=== PATIENT | female | born 1970 | race African-American/Black ===

== ENCOUNTER 2017-01-03 11:16 | Emergency (ER) | payer MEDICARE, MEDICAID ==
[~2017-01-03] VITALS: Ht 162.6 cm; Wt 72.6 kg
[~2017-01-03 11:16] MED LIST: ACETAMINOPHEN-1 EAC1 ORAL; ACETAMINOPHEN500 M3 ORAL; ATIVAN2 MG ORAL; CYCLOBENZAPRINE10 MG ORAL; IBUPROFEN600 MG ORAL; KEPPRA500 MG ORAL; MIRTAZAPINE45 MG ORAL; NORCO 5-325 TA1 EACH ORAL; NORCO1 E1 ORAL; ONDANSETRON ODT4 MG ORAL; PROPRANOLOL HCL40 MG ORAL; ROBAXIN-750750 MG PO; TRAMADOL HCL50 MG ORAL; VICODIN1 TA1 ORAL; XANAX2 MG ORAL; [UNRECOGNIZED DRUG - REMARK]
--- NOTE | 2017-01-03 11:26 | Emergency Room Report ---
History of Present Illness General Chief Complaint: Chest Pain Source: Patient, EMS Present Illness HPI R chest pain. On motrin and norco. Pain is sharp, R sided, lateral and radiates up to shoulder, worse with movement. No URI sy. Pain /. CP w/u 3 times to exclude cardiac cause. Post epidural 2 weeks ago. Fevers immediately after which have resolved. Epidurals for chronic back pain. Walks with cane. Also has been seen for neck pain which is also chronic and unchanged today. On macrobid for UTI since Sunday. H/O bipolar disorder. H/O seizures - no recent sz. 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 Reviewed Nursing Documentation: PMH: Agreed, PSxH: Agreed Nursing Documentation-PMH History Of Psychiatric Problem: Yes Hx Seizures: Yes Review of Systems All Other Systems: negative except mentioned in HPI Physical Exam Vital Signs Date Time Temp Pulse Resp B/P Pulse Ox O2 Delivery O2 Flow Rate FiO2 01/03/17 11:13 98.4 98 18 129/86 98 Room Air Sp02 EP Interpretation: reviewed, normal General Appearance: well appearing, no apparent distress, GCS 15 Head: normocephalic, atraumatic Eyes: bilateral eye PERRL, bilateral eye normal inspection ENT: moist mucus membranes Neck: full range of motion, supple Respiratory: lungs clear, normal breath sounds, other - tenderness R lateral chest Cardiovascular #1: regular rate, rhythm Cardiovascular #2: 2+ radial (R) Gastrointestinal: normal inspection, normal bowel sounds, non tender, no mass, non-distended Musculoskeletal: gait/station normal, normal range of motion, other - back with muscle spasm and tenderness, not bony Neurologic: alert, oriented x3, grossly normal Psychiatric: mood/affect normal - frustrated Skin: normal inspection, warm/dry Medical Decision Making Diagnostic Impression: Primary Impression: Chest pain Qualified Codes: R07.89 - Other chest pain Additional Impressions: Partially treated UTI Chronic back pain Qualified Codes: M54.41 - Lumbago with sciatica, right side; G89.29 - Other chronic pain ER Course Patient with R chest pain. Ddx: strain, costochondritis, pneumothorax, PE amongst others. Based on hx and exam, PE less likely. Evaluation with EKG, CXR , labs. Treatment with analgesia. EKG, CXR, labs unremarkable (except opiates). Exam most c/w muscular/chest wall pain. No medical emergency. Patient stable for outpatient observation and treatment. Laboratory Tests Test 01/03/17 11:50 White Blood Count 7.2 K/UL (4.8-10.8) Red Blood Count 3.84 M/UL (4.20-5.40) L Hemoglobin 10.4 G/DL (12.0-16.0) L Hematocrit 33.7 % (37.0-47.0) L Mean Corpuscular Volume 88 FL (80-99) Mean Corpuscular Hemoglobin 27.1 PG (27.0-31.0) Mean Corpuscular Hemoglobin Concent 30.9 G/DL (32.0-36.0) L Red Cell Distribution Width 15.7 % (11.6-14.8) H Platelet Count 244 K/UL (150-450) Mean Platelet Volume 6.8 FL (6.5-10.1) Neutrophils (%) (Auto) 59.8 % (45.0-75.0) Lymphocytes (%) (Auto) 30.2 % (20.0-45.0) Monocytes (%) (Auto) 8.3 % (1.0-10.0) Eosinophils (%) (Auto) 1.0 % (0.0-3.0) Basophils (%) (Auto) 0.6 % (0.0-2.0) Prothrombin Time 10.0 SEC (9.30-11.50) Prothrombin Time INR 1.0 (0.9-1.1) PTT 24 SEC (23-33) Sodium Level 135 mEQ/L (135-145) Potassium Level 3.6 mEQ/L (3.4-4.9) Chloride Level 96 mEQ/L (98-107) L Carbon Dioxide Level 25 mEQ/L (20-30) Anion Gap 14 (5-15) Blood Urea Nitrogen 11 mg/dL (7-23) Creatinine 0.6 mg/dL (0.5-0.9) Estimate Glomerular Filtration Rate > 60 mL/min (>60) Glucose Level 108 mg/dL (74-106) H Calcium Level 8.8 mg/dL (8.6-10.2) Total Bilirubin 0.3 mg/dL (0.0-1.2) Aspartate Amino Transferase (AST) 16 U/L (5-40) Alanine Aminotransferase (ALT) 11 U/L (3-33) Alkaline Phosphatase 45 U/L (35-104) Total Creatine Kinase 51 U/L (26-140) Troponin I < 0.30 ng/mL (<=0.30) Pro-B-Type Natriuretic Peptide 55 pg/mL (0-125) Total Protein 7.0 g/dL (6.6-8.7) Albumin 3.7 g/dL (3.5-5.2) Globulin 3.3 g/dL Albumin/Globulin Ratio 1.1 (1.0-2.7) Urine Opiates Screen Positive (NEGATIVE) H Urine Barbiturates Screen Negative (NEGATIVE) Phencyclidine (PCP) Screen Negative (NEGATIVE) Urine Amphetamines Screen Negative (NEGATIVE) Urine Benzodiazepines Screen Negative (NEGATIVE) Urine Cocaine Screen Negative (NEGATIVE) Urine Marijuana (THC) Screen Negative (NEGATIVE) EKG Diagnostic Results Rate: normal Rhythm: NSR ST Segments: no acute changes Rhythm Strip Diag. Results EP Interpretation: yes Rhythm: NSR, no PVC's, no ectopy Chest X-Ray Diagnostic Results EP Interpretation: Yes Findings: no consolidation, no effusion, no pneumothorax, no acute cardiopulmonary disease Number of Views: 1 Last Vital Signs Date Time Temp Pulse Resp B/P Pulse Ox O2 Delivery O2 Flow Rate FiO2 01/03/17 14:41 98.4 01/03/17 14:30 86 16 111/65 100 Room Air Status: improved Disposition: HOME, SELF-CARE Condition: Improved Scripts Methocarbamol* (ROBAXIN*) 500 Mg Tablet 500 MG PO TID, #10 TAB 0 Refills Prov: Eyal Mckoy M.D. 01/03/17 Eyal Mckoy M.D. January 03, 2017 11:26
[2017-01-03] MEDS ORDERED: Morphine Sulfate 4mg/ml Inj IVP ONE (11:30)
[2017-01-03 11:57] VITALS: BP 129/86
[2017-01-03 12:23] LABS: BASOPHILS % (AUTO) 0.6 % (0.0-2.0); LYMPHOCYTES % (AUTO) 30.2 % (20.0-45.0); MEAN CORPUSCULAR HEMOGLOBIN 27.1 PG (27.0-31.0); MEAN CORPUSCULAR HGB CONC 30.9 G/DL (32.0-36.0); MEAN CORPUSCULAR VOLUME 88 FL (80-99); MEAN PLATELET VOLUME 6.8 FL (6.5-10.1); MONOCYTES % (AUTO) 8.3 % (1.0-10.0); NEUTROPHILS % (AUTO) 59.8 % (45.0-75.0); PLATELET COUNT 244 K/UL (150-450); RED BLOOD COUNT 3.84 M/UL (4.20-5.40); RED CELL DISTRIBUTION WIDTH 15.7 % (11.6-14.8); WHITE BLOOD COUNT 7.2 K/UL (4.8-10.8)
[2017-01-03 12:30] VITALS: BP 132/77
[2017-01-03 12:37] LABS: ALANINE AMINOTRANSFERASE 11 U/L (3-33); ALBUMIN/GLOBULIN RATIO 1.1 (1.0-2.7); ANION GAP 14 (5-15); ASPARTATE AMINO TRANSFERASE 16 U/L (5-40); CALCIUM 8.8 mg/dL (8.6-10.2); CARBON DIOXIDE 25 mEQ/L (20-30); CHLORIDE 96 mEQ/L (98-107); CREATININE 0.6 mg/dL (0.5-0.9); GLOMERULAR FILTRATION RATE > 60 mL/min (>60); HEMOLYSIS 5; POTASSIUM 3.6 mEQ/L (3.4-4.9); SODIUM 135 mEQ/L (135-145); TROPONIN I < 0.30 ng/mL (<=0.30)
--- NOTE | 2017-01-03 12:51 | Diagnostic Imaging Report ---
Indication: Chest Technique: One view of the chest Comparison: 01/10/2015 Findings: Lungs and pleural spaces are clear. Heart size is normal Impression: No acute process
[2017-01-03 13:30] VITALS: BP 111/65
[2017-01-03 14:30] VITALS: BP 111/65
[2017-01-03] MEDS ORDERED: ROBAXIN500 MG PO (14:36)
[2017-01-03] MEDS ORDERED: Oxycodone/Acetaminophen 5-325 ORAL ONE (14:45)
--- NOTE | 2017-01-04 16:02 | Cardiology Report ---
APPROVED REPORT EKG Measurement Heart [id number] Normal sinus rhythm Cannot rule out Anterior infarct, age undetermined Abnormal ECG
== END 2017-01-03 14:42 | disposition home or self-care (01) ==
LOC: EDBD 11:16 → EMR 11:26
DX: R07.89 Other chest pain (principal); N39.0 Urinary tract infection, site not specified; G89.29 Other chronic pain; M54.41 Lumbago with sciatica, right side
CPT/HCPCS: 36415; 71010; 80053; 80300; 82550; 83880; 84484; 85025; 85610; 85730; 93005; 99283; J2270; J2405

== ENCOUNTER 2017-09-30 13:47 | Emergency (ER) | payer MEDICARE, MEDICAID ==
[~2017-09-30] VITALS: Ht 162.6 cm; Wt 81.6 kg
[~2017-09-30 13:47] MED LIST changes: +ROBAXIN500 MG PO
--- NOTE | 2017-09-30 14:43 | Emergency Room Report ---
History of Present Illness General Chief Complaint: Pain Present Illness HPI 47yo f complains of back pain and diffuse right-sided pain for the last 3 days , since falling down She reports it was a mechanical slip and fall She denies loss of consciousness or syncope She denies bleeding anywhere, or neck pain She reports she is able to ambulate and has no other problems, and is not on blood thinners Allergies: Coded Allergies: DIVALPROEX SODIUM (Verified Allergy, Mild, Shortness of Breath, 02/19/13) QUETIAPINE (Verified Allergy, Unknown, 06/13/15) Patient History Past Medical History: see triage record Reviewed Nursing Documentation: PMH: Agreed, PSxH: Agreed Nursing Documentation-PMH History Of Psychiatric Problem: Yes - PTSD Hx Seizures: Yes Review of Systems All Other Systems: negative except mentioned in HPI Physical Exam Vital Signs Date Time Temp Pulse Resp B/P (MAP) Pulse Ox O2 Delivery O2 Flow Rate FiO2 09/30/17 14:21 97.5 90 20 128/91 100 Room Air Sp02 EP Interpretation: reviewed, normal General Appearance: no apparent distress, alert, non-toxic Head: normocephalic Eyes: bilateral eye normal inspection, bilateral eye PERRL, bilateral eye EOMI ENT: normal ENT inspection, hearing grossly normal, normal pharynx, no angioedema, normal voice, moist mucus membranes Neck: normal inspection, full range of motion, supple, supple/symm/no masses Respiratory: chest non-tender, lungs clear, normal breath sounds, chest symmetrical, palpation of chest normal Cardiovascular #1: normal peripheral pulses, regular rate, rhythm Cardiovascular #2: 2+ radial (R), 2+ radial (L) Gastrointestinal: normal inspection, non tender, soft, no mass, no guarding, no rebound Rectal: deferred Genitourinary: normal inspection, no CVA tenderness Musculoskeletal: back normal, gait/station normal, normal range of motion, non- tender - No midline deformities or step-offs and thoracolumbar spine nor sacrum , the patient reports diffuse paraspinous muscle tenderness in lumbar region, no calf tenderness Neurologic: normal inspection, alert, responsive, diamond merchant III-XII nml as tested, motor strength/tone normal, SLR negative - SLR + on R, sensory intact, normal gait, speech normal Psychiatric: judgement/insight normal, memory normal, mood/affect normal, no suicidal/homicidal ideation Skin: normal color, no rash, warm/dry, normal turgor Lymphatic: no adenopathy Medical Decision Making ER Course Patient with musculoskeletal back pain after a fall 3 days ago, Normal neurologic examination No history of IV drug use No history of anticoagulant use Unremarkable exam other than musculoskeletal paraspinous muscle tenderness in the lumbar region As well as positive straight-leg raising test on right side X-ray normal Patient has history of old traumatic injury and herniated disc She has no other right-sided limitations in range of motion or tenderness over bony aspects of the right arm leg or thorax She had no head injury nor any neck pain or tenderness She was given anti-inflammatory, muscle relaxers and valium Other X-Ray Diagnostic Results Other X-Ray Diagnostic Results : X-Ray ordered: L-spine # of Views/Limited Vs Complete: 4 View Indication: Pain PA Xray: Interpretation reviewed Interpretation: no dislocation, no fractures Impression: No acute disease Electronically Signed by: Toy Owen MD Last Vital Signs Date Time Temp Pulse Resp B/P (MAP) Pulse Ox O2 Delivery O2 Flow Rate FiO2 09/30/17 14:21 97.5 90 20 128/91 100 Room Air Condition: Stable Referrals: NON PHYSICIAN (PCP) TOY OWEN M.D Sep 30, 2017 14:43
[2017-09-30] MEDS ORDERED: Cyclobenzaprine 10mg Tab ORAL ONE (14:45)
[2017-09-30] MEDS ORDERED: Ketorolac 60mg Inj IM ONE (14:45)
[2017-09-30] MEDS ORDERED: IBUPROFEN600 MG ORAL (16:21)
[2017-09-30] MEDS ORDERED: CYCLOBENZAPRINE10 MG ORAL (16:21)
--- NOTE | 2017-10-01 12:22 | Diagnostic Imaging Report ---
Indication: Back pain Technique: 3 views of the lumbar spine Comparison: None Findings: Vertebral body heights and disc spaces are preserved. Pedicles are intact. Sacral arches are preserved. Small anterior osteophytes are seen at L4 Included extra spinal soft tissues are unremarkable. Impression: Minimal degenerative changes. No acute bony trauma
[2017-10-18 08:24] VITALS: BP 128/91
[2017-11-20] MEDS ORDERED: ALPRAZOLAM1 MG ORAL (21:52)
[2017-11-20] MEDS ORDERED: MIRTAZAPINE15 MG ORAL (21:52)
[2017-11-21] MEDS ORDERED: NAPROXEN375 M2 ORAL (01:38)
[2017-11-24] MEDS ORDERED: BACLOFEN10 MG ORAL (10:49)
[2017-11-24] MEDS ORDERED: NAPROXEN CR500 MG PO (10:51)
[2017-11-24] MEDS ORDERED: NEURONTIN300 MG ORAL (10:52)
[2017-11-24] MEDS ORDERED: TRAMADOL HCL50 MG ORAL (10:53)
== END 2017-09-30 16:00 | disposition home or self-care (01) ==
LOC: EMR 14:00
DX: M54.5 Low back pain (principal); W01.0XXA Fall on same level from slipping, tripping and stumbling without subsequent striking against object, initial encounter; Y92.9 Unspecified place or not applicable; F43.10 Post-traumatic stress disorder, unspecified; Z86.69 Personal history of other diseases of the nervous system and sense organs; Z88.8 Allergy status to other drugs, medicaments and biological substances
CPT/HCPCS: 72020; 96372; 99284

== ENCOUNTER 2017-10-31 12:31 | Inpatient (IN) | payer MEDICARE, MEDICAID ==
[~2017-10-31] VITALS: Ht 160 cm; Wt 77.1 kg
[2017-10-31 13:44] LABS: APPEARANCE,URINE CLOUDY; BILIRUBIN, URINE NEGATIVE (NEGATIVE); GLUCOSE, URINE (UA) NEGATIVE (NEGATIVE); KETONES,URINE NEGATIVE (NEGATIVE); LEUKOCYTE ESTERASE ,URINE 1+ (NEGATIVE); NITRITE,URINE NEGATIVE (NEGATIVE); PH,URINE 5 (4.5-8.0); PROTEIN,URINE NEGATIVE (NEGATIVE); UROBILINOGEN,URINE NORMAL MG/DL (0.0-1.0)
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
[2017-10-31 13:55] LABS: COLOR,URINE YELLOW
[2017-10-31] MEDS ORDERED: Ketorolac 30mg Inj IV ONE (15:00)
[2017-10-31] MEDS ORDERED: Morphine Sulfate 4mg/ml Inj IVP ONE (15:00)
[2017-10-31 15:21] LABS: BASOPHILS % (AUTO) 0.8 % (0.0-2.0); EOSINOPHILS % (AUTO) 2.2 % (0.0-3.0); HEMATOCRIT 34.1 % (37.0-47.0); HEMOGLOBIN 10.4 G/DL (12.0-16.0); LYMPHOCYTES % (AUTO) 45.7 % (20.0-45.0); MEAN CORPUSCULAR VOLUME 84 FL (80-99); MONOCYTES % (AUTO) 8.2 % (1.0-10.0); PLATELET COUNT 305 K/UL (150-450); RED BLOOD COUNT 4.07 M/UL (4.20-5.40); RED CELL DISTRIBUTION WIDTH 17.5 % (11.6-14.8)
[2017-10-31 15:41] LABS: ANION GAP 8 mmol/L (5-15); BLOOD UREA NITROGEN 9 mg/dL (7-18); CALCIUM 9.4 MG/DL (8.5-10.1); CARBON DIOXIDE 28 MMOL/L (21-32); CHLORIDE 103 MMOL/L (98-107); CREATININE 0.8 MG/DL (0.55-1.30); POTASSIUM 3.8 MMOL/L (3.5-5.1); SODIUM 139 MMOL/L (136-145)
[2017-10-31 15:46] LABS: ALANINE AMINOTRANSFERASE 25 U/L (12-78); ALBUMIN 3.7 G/DL (3.4-5.0); ALBUMIN/GLOBULIN RATIO 0.8 (1.0-2.7); ALKALINE PHOSPHATASE 65 U/L (46-116); ASPARTATE AMINO TRANSFERASE 24 U/L (15-37); BILIRUBIN,TOTAL 0.3 MG/DL (0.2-1.0)
[2017-10-31 16:51] VITALS: BP 147/79
[2017-10-31 18:24] VITALS: BP 153/91
[2017-10-31 19:12] LABS: ANION GAP 8 mmol/L (5-15); BLOOD UREA NITROGEN 10 mg/dL (7-18); CARBON DIOXIDE 28 MMOL/L (21-32); CHLORIDE 104 MMOL/L (98-107); CREATININE 0.7 MG/DL (0.55-1.30); POTASSIUM 3.6 MMOL/L (3.5-5.1); SODIUM 139 MMOL/L (136-145)
[2017-10-31] MEDS: Morphine Sulfate 2mg/ml Inj IVP PRN ×2 (19:27→23:56)
[2017-10-31] MEDS: D5 1/2NS 1,000 ML IV SCH (19:32)
[2017-10-31 20:07] VITALS: BP 150/72
[2017-10-31] MEDS: ALPRAZolam 0.5mg tab ORAL SCH (20:42)
[2017-10-31] MEDS ORDERED: ALPRAZolam 0.25mg tab ORAL SCH (21:00)
[2017-11-01 00:14] VITALS: BP 137/68
[2017-11-01 04:47] VITALS: BP 145/83
[2017-11-01] MEDS: Morphine Sulfate 2mg/ml Inj IVP PRN ×2 (06:05→12:07)
[2017-11-01 07:04] LABS: EOSINOPHILS % (AUTO) 1.9 % (0.0-3.0); HEMATOCRIT 33.8 % (37.0-47.0); HEMOGLOBIN 10.5 G/DL (12.0-16.0); LYMPHOCYTES % (AUTO) 33.4 % (20.0-45.0); MEAN CORPUSCULAR VOLUME 84 FL (80-99); MONOCYTES % (AUTO) 9.2 % (1.0-10.0); NEUTROPHILS % (AUTO) 54.4 % (45.0-75.0); PLATELET COUNT 289 K/UL (150-450); RED BLOOD COUNT 4.01 M/UL (4.20-5.40); RED CELL DISTRIBUTION WIDTH 17.3 % (11.6-14.8); WHITE BLOOD COUNT 6.8 K/UL (4.8-10.8)
[2017-11-01 08:00] VITALS: BP 118/70
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
[2017-11-01] MEDS: Cyclobenzaprine 10mg Tab ORAL SCH ×3 (09:06→18:30)
[2017-11-01] MEDS: Propranolol 40mg tab ORAL SCH ×2 (09:06→18:30)
--- NOTE | 2017-11-01 11:41 | Consultation ---
Consult Note Consult Note ID DIC # [id number] PRADIP BOYLE M.D. Nov 01, 2017 11:41
[2017-11-01 12:00] VITALS: BP 140/76
[2017-11-01] MEDS: Levofloxacin 500mg tab ORAL SCH (15:17)
[2017-11-01] MEDS: D5 1/2NS 1,000 ML IV SCH (15:18)
[2017-11-01 16:00] VITALS: BP 146/87
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
--- NOTE | 2017-11-01 16:25 | Diagnostic Imaging Report ---
Indication: Severe pelvic pain and vaginal bleeding. Negative test Technique: Transabdominal and transvaginal images Comparison: none Findings: Uterus measures 11 cm in length by 6.9 cm AP. The endometrium measures 5 mm thick. The posterior myometrium, there is a 6.3 cm hypoechoic mass which extends to the serosal surface, consistent with a type right. This appears to be centered in the myometrium but does appear to reach the serosal surface. The left ovary measures 2.9 cm in length. The right ovary measures 2.9 cm in length. The ovaries are only visualized on the transabdominal images. No free cul-de-sac fluid. No adnexal mass Impression: Positive for 6.3 cm uterine intramural fibroid. No other significant abnormality demonstrated Handwritten preliminary report previously provided to the emergency room via the PACS
--- NOTE | 2017-11-01 19:30 | Consultation ---
DATE OF CONSULTATION: 11/01/2017 INFECTIOUS DISEASE CONSULTATION CONSULTING PHYSICIAN: Owen Arango M.D. REQUESTING PHYSICIAN: Darrick Mazariegos D.O. REASON FOR CONSULTATION: Evaluation of the patient for urinary tract infection, antibiotic management. HISTORY OF PRESENT ILLNESS: The patient is a 47-year-old female with history of posttraumatic stress disorder who was admitted to this medical center due to right flank, back, and the right groin pain. The patient has been complaining of some dysuria and occasional blood in the urine. Infectious Diseases consultation has been requested for further evaluation of the patient and antibiotic management of possible urinary tract infection. PAST MEDICAL HISTORY: 1. As mentioned above. 2. History of . MEDICATIONS: Currently, off of antibiotics. ALLERGIES: No allergies to antibiotics. FAMILY HISTORY: Not contributing. REVIEW OF SYSTEMS: HEENT: No recent change in vision or hearing. PULMONARY: Occasional cough. CARDIOVASCULAR: No chest pain. GASTROINTESTINAL/ABDOMEN: No diarrhea today. GENITOURINARY: As mentioned above. MUSCULOSKELETAL: As mentioned above. PHYSICAL EXAMINATION: VITAL SIGNS: Temperature 97 degrees, blood pressure 118/70, pulse 86, and respiratory rate 18. HEENT: No pale conjunctiva. No icterus. NECK: No lymphadenopathy. CHEST: Clear. HEART: S1 and S2. ABDOMEN: Soft. Mild right flank tenderness. Right groin and right lower quadrant tenderness mild. LABORATORY AND DIAGNOSTIC DATA: White blood cells 6.8, hemoglobin 10, and platelet 289. UA, 5 to 10 white blood cells, 5 to 10 red blood cells, and 2+ occult blood. BUN 10 and creatinine 0.7. X-ray of lumbar spine back in 09/30/2017 showed minimal DJD changes. PLAN: 1. We will start the patient on Levaquin. 2. Monitor urine culture. 3. Monitor blood culture. 4. CT of abdomen without contrast, rule out renal stone. 5. Monitor CBC. 6. Monitor BMP. 7. Based on the patient's clinical course and laboratories, we will do further recommendations. Thank you, Dr. Mazariegos, for allowing me to participate in the care of this patient. I will follow the patient with you during this hospitalization. Owen Arango M.D. DR: GABO JOB#: [id number] CC:
[2017-11-01 20:00] VITALS: BP 138/60
[2017-11-01] MEDS: ALPRAZolam 0.5mg tab ORAL SCH (21:08)
--- NOTE | 2017-11-01 23:45 | History and Physical Report ---
DATE OF ADMISSION: 10/31/2017 TIME: 2 p.m. CONSULTANTS: 1. Alessia Baldwin M.D. 2. Owen Arango M.D. 3. Dr. Haile. 4. Lucretia Rojas M.D. 5. Marty Chen M.D. 6. Dr. Collins. CHIEF COMPLAINT: Intractable back pain on right, urinary tract infection, fibroid, encephalopathy, PTSD. BRIEF HISTORY: This is a 47-year-old female, who about a week ago started having back pain radiating down to the leg, is getting worse, came to [facility], diagnosed with the above, and urinary tract infection, and history of fibroids admitted to medical floor for further treatment. Currently, calm in bed, pain somewhat subsided. No complaint. REVIEW OF SYSTEMS: No chest pain. No shortness of breath. No nausea, vomiting, or diarrhea. PAST MEDICAL HISTORY: PTSD and fibroid. PAST SURGICAL HISTORY: . MEDICATIONS: Include levofloxacin, Flexeril, Inderal, Keppra, Remeron, Xanax, Zofran, morphine, Tylenol. ALLERGIES: Depakote and quetiapine. SOCIAL HISTORY: No smoking. Occasional alcohol. No intravenous drug abuse. FAMILY HISTORY: Noncontributory. PHYSICAL EXAMINATION: GENERAL: Calm in bed, oriented x3, no acute distress. VITAL SIGNS: Show temperature 97 degrees, pulse 81, respiratory rate 19, blood pressure 140/76. CARDIOVASCULAR: No murmur. LUNGS: Distant and clear. ABDOMEN: Bowel sounds positive. Soft, nontender and nondistended. EXTREMITIES: No cyanosis or edema. NEUROLOGIC: The patient moves all extremities, but slightly weak. LABORATORY AND DIAGNOSTIC DATA: Hemoglobin and hematocrit 10 and 33 otherwise CBC is normal. BMP is normal. Urinalysis 3+ occult blood, 1+ leukocyte esterase. ASSESSMENT: 1. back pain. 2. Urinary tract infection. 3. Fibroid. 4. Seizure. 5. Anemia. 6. Encephalopathy. 7. PTSD. PLAN: 1. OT/PT. 2. Dietary evaluation. 3. Pain control. 4. CBC and BMP in the morning. 5. Antibiotics per Infectious Disease. 6. Resume home medications. 7. Dr. Baldwin, Dr. Arango, Dr. Dr. Crystal Haile Dr. Ganjianpour, Dr. Johnson to consult. Darrick Mazariegos D.O. DR: Bing JOB#: [id number] CC:
[2017-11-02] VITALS: BP 143/67
[2017-11-02 04:41] VITALS: BP 127/73
[2017-11-02] MEDS: D5 1/2NS 1,000 ML IV SCH ×2 (06:43→21:52)
[2017-11-02 06:56] LABS: BASOPHILS % (AUTO) 1.7 % (0.0-2.0); EOSINOPHILS % (AUTO) 3.5 % (0.0-3.0); HEMOGLOBIN 11.3 G/DL (12.0-16.0); LYMPHOCYTES % (AUTO) 39.7 % (20.0-45.0); MEAN CORPUSCULAR VOLUME 84 FL (80-99); MONOCYTES % (AUTO) 10.8 % (1.0-10.0); NEUTROPHILS % (AUTO) 44.4 % (45.0-75.0); PLATELET COUNT 285 K/UL (150-450); RED BLOOD COUNT 4.29 M/UL (4.20-5.40); RED CELL DISTRIBUTION WIDTH 17.8 % (11.6-14.8); WHITE BLOOD COUNT 4.6 K/UL (4.8-10.8)
--- NOTE | 2017-11-02 06:57 | General Progress Note ---
Assessment/Plan Problem List: (1) PTSD (post-traumatic stress disorder) ICD Codes: F43.10 - Post-traumatic stress disorder, unspecified SNOMED: 22545100 (2) Fibroid ICD Codes: D25.9 - Leiomyoma of uterus, unspecified SNOMED: 50824072 (3) Anemia ICD Codes: D64.9 - Anemia, unspecified SNOMED: 208463415 (4) Low back pain ICD Codes: M54.5 - Low back pain SNOMED: 589675749 (5) Chronic back pain ICD Codes: M54.9 - Dorsalgia, unspecified; G89.29 - Other chronic pain SNOMED: 702138757 (6) Acute exacerbation of chronic low back pain ICD Codes: M54.5 - Low back pain; G89.29 - Other chronic pain SNOMED: 337674685 (7) UTI (urinary tract infection) ICD Codes: N39.0 - Urinary tract infection, site not specified SNOMED: 96096058 (8) Seizure disorder Status: unchanged Assessment/Plan otp t diet abx gi f/u cbc bmp am Subjective Constitutional: Reports: weakness Allergies: Coded Allergies: DIVALPROEX SODIUM (Verified Allergy, Mild, Shortness of Breath, 02/19/13) QUETIAPINE (Verified Allergy, Unknown, 06/13/15) All Systems: reviewed and negative except above Subjective calm sleepy Objective Last 24 Hour Vital Signs Date Time Temp Pulse Resp B/P (MAP) Pulse Ox O2 Delivery O2 Flow Rate FiO2 11/02/17 04:41 97.2 69 20 127/73 100 Room Air 97.2 63 11/02/17 00:00 97.9 79 20 143/67 98 97.9 11/01/17 20:00 98.1 78 18 138/60 98 98.1 11/01/17 19:29 97.5 11/01/17 18:30 76 146/87 11/01/17 18:30 97.5 11/01/17 16:00 97.5 76 18 146/87 97 97.5 11/01/17 15:18 97.7 11/01/17 12:37 97.7 11/01/17 12:07 97.7 11/01/17 12:00 97.7 71 19 140/76 98 97.7 3/1/18 09:06 76 118/70 11/01/17 09:06 97.7 11/01/17 08:00 97.7 76 18 118/70 98 97.7 Intake and Output 11/01/17 11/02/17 19:00 07:00 Intake Total 1020 ml 1200 ml Balance 1020 ml 1200 ml Intake Oral 480 ml 480 ml IV Total 540 ml 720 ml # Voids 2 2 Laboratory Tests 11/01/17 19:15: Urine HCG, Qualitative Negative 11/02/17 05:15: White Blood Count [Pending], Red Blood Count [Pending], Hemoglobin [Pending], Hematocrit [Pending], Mean Corpuscular Volume [Pending], Mean Corpuscular Hemoglobin [Pending], Mean Corpuscular Hemoglobin Concent [Pending], Red Cell Distribution Width [Pending], Platelet Count [Pending], Mean Platelet Volume [ Pending], Neutrophils (%) (Auto) [Pending], Lymphocytes (%) (Auto) [Pending], Monocytes (%) (Auto) [Pending], Eosinophils (%) (Auto) [Pending], Basophils (%) (Auto) [Pending], Sodium Level [Pending], Potassium Level [Pending], Chloride Level [Pending], Carbon Dioxide Level [Pending], Blood Urea Nitrogen [Pending], Creatinine [Pending], Estimat Glomerular Filtration Rate [Pending], Glucose Level [Pending], Calcium Level [Pending] Height (Feet): 5 Height (Inches): 3.00 Weight (Pounds): 170 General Appearance: lethargic EENT: normal ENT inspection Neck: normal alignment Cardiovascular: normal peripheral pulses, normal rate, regular rhythm Respiratory/Chest: chest wall non-tender, lungs clear, normal breath sounds Abdomen: normal bowel sounds, non tender, soft Extremities: normal inspection Edema: no edema noted Arm (L), no edema noted Arm (R), no edema noted Leg (L), no edema noted Leg (R), no edema noted Pedal (L), no edema noted Pedal (R), no edema noted Generalized Neurologic: motor weakness Skin: normal pigmentation, warm/dry CHRISTINA HUI Nov 02, 2017 06:57
[2017-11-02 07:35] LABS: ANION GAP 9 mmol/L (5-15); BLOOD UREA NITROGEN 9 mg/dL (7-18); CALCIUM 9.4 MG/DL (8.5-10.1); CARBON DIOXIDE 26 MMOL/L (21-32); CHLORIDE 104 MMOL/L (98-107); CREATININE 0.8 MG/DL (0.55-1.30); POTASSIUM 4.1 MMOL/L (3.5-5.1); SODIUM 139 MMOL/L (136-145)
[2017-11-02 08:00] VITALS: BP 135/75
[2017-11-02] MEDS: Levofloxacin 500mg tab ORAL SCH (09:04)
[2017-11-02] MEDS: Propranolol 40mg tab ORAL SCH ×2 (09:04→18:29)
[2017-11-02] MEDS: Cyclobenzaprine 10mg Tab ORAL SCH ×3 (09:05→18:28)
--- NOTE | 2017-11-02 09:15 | Consultation ---
History of Present Illness General Date patient seen: Nov 02, 2017 Present Illness Allergies: Coded Allergies: DIVALPROEX SODIUM (Verified Allergy, Mild, Shortness of Breath, 02/19/13) QUETIAPINE (Verified Allergy, Unknown, 06/13/15) Medication History Scheduled Alprazolam* (Xanax*), 2 MG ORAL HS, (Reported) Cyclobenzaprine Hcl* (Flexeril*), 10 MG ORAL THREE TIMES A DAY Mirtazapine* (Remeron*), 45 MG ORAL DAILY, (Reported) Scheduled PRN Ibuprofen* (Motrin*), 600 MG ORAL Q6H PRN for For Pain Discontinued Medications Acetaminophen With Codeine (T#3) (Tylenol #3 Tab*), 1 TAB ORAL Q8H PRN for For Pain Discontinued Reason: Pt stopped taking med Levetiracetam (Keppra), 250 MG ORAL EVERY 12 HOURS, (Reported) Discontinued Reason: Pt stopped taking med Methocarbamol* (Robaxin-750*), 750 MG PO TID Discontinued Reason: Pt stopped taking med Methocarbamol* (Robaxin*), 500 MG PO TID Discontinued Reason: Pt stopped taking med Ondansetron Odt* (Zofran Odt*), 4 MG ORAL EVERY 8 HOURS Discontinued Reason: Pt stopped taking med Propranolol Hcl* (Inderal*), 40 MG ORAL BID, (Reported) Discontinued Reason: Pt stopped taking med Tramadol Hcl* (Ultram*), 50 MG ORAL BID PRN for For Pain, (Reported) Discontinued Reason: Pt stopped taking med Patient History Healthcare decision maker self Resuscitation status Full Code Advanced Directive on File No Physical Exam Last 24 Hour Vital Signs Date Time Temp Pulse Resp B/P (MAP) Pulse Ox O2 Delivery O2 Flow Rate FiO2 11/02/17 09:05 98.1 11/02/17 09:04 76 135/75 11/02/17 08:00 98.1 76 21 135/75 95 98.1 11/02/17 04:41 97.2 69 20 127/73 100 Room Air 97.2 63 11/02/17 00:00 97.9 79 20 143/67 98 97.9 11/01/17 20:00 98.1 78 18 138/60 98 98.1 11/01/17 19:29 97.5 11/01/17 18:30 76 146/87 11/01/17 18:30 97.5 11/01/17 16:00 97.5 76 18 146/87 97 97.5 11/01/17 15:18 97.7 11/01/17 12:37 97.7 11/01/17 12:07 97.7 11/01/17 12:00 97.7 71 19 140/76 98 97.7 Intake and Output 11/01/17 11/02/17 19:00 07:00 Intake Total 1020 ml 1200 ml Balance 1020 ml 1200 ml Intake Oral 480 ml 480 ml IV Total 540 ml 720 ml # Voids 2 2 Laboratory Tests Test 11/01/17 19:15 11/02/17 05:15 Urine HCG, Qualitative Negative White Blood Count 4.6 K/UL (4.8-10.8) L Red Blood Count 4.29 M/UL (4.20-5.40) Hemoglobin 11.3 G/DL (12.0-16.0) L Hematocrit 36.0 % (37.0-47.0) L Mean Corpuscular Volume 84 FL (80-99) Mean Corpuscular Hemoglobin 26.3 PG (27.0-31.0) L Mean Corpuscular Hemoglobin Concent 31.3 G/DL (32.0-36.0) L Red Cell Distribution Width 17.8 % (11.6-14.8) H Platelet Count 285 K/UL (150-450) Mean Platelet Volume 7.3 FL (6.5-10.1) Neutrophils (%) (Auto) 44.4 % (45.0-75.0) L Lymphocytes (%) (Auto) 39.7 % (20.0-45.0) Monocytes (%) (Auto) 10.8 % (1.0-10.0) H Eosinophils (%) (Auto) 3.5 % (0.0-3.0) H Basophils (%) (Auto) 1.7 % (0.0-2.0) Sodium Level 139 MMOL/L (136-145) Potassium Level 4.1 MMOL/L (3.5-5.1) Chloride Level 104 MMOL/L (98-107) Carbon Dioxide Level 26 MMOL/L (21-32) Anion Gap 9 mmol/L (5-15) Blood Urea Nitrogen 9 mg/dL (7-18) Creatinine 0.8 MG/DL (0.55-1.30) Estimat Glomerular Filtration Rate > 60 mL/min (>60) Glucose Level 101 MG/DL (74-106) Calcium Level 9.4 MG/DL (8.5-10.1) Height (Feet): 5 Height (Inches): 3.00 Weight (Pounds): 170 Medications Current Medications Medications (Trade) Dose Ordered Sig/Jose Guadalupe Route PRN Reason Start Time Stop Time Status Last Admin Dose Admin Acetaminophen (Tylenol) 650 mg Q4H PRN ORAL Mild Pain/Temp > 100.5 10/31/17 18:15 11/30/17 18:14 Alprazolam (Xanax) 2 mg QHS ORAL 10/31/17 21:00 11/07/17 20:59 11/01/17 21:08 Cyclobenzaprine HCl (Flexeril) 10 mg THREE TIMES A DAY ORAL 11/01/17 09:00 12/01/17 08:59 11/02/17 09:05 Dextrose/Sodium Chloride 1,000 ml @ 60 mls/hr [id number] IV 10/31/17 19:00 11/30/17 18:59 11/02/17 06:43 Levetiracetam (Keppra) 250 mg Q12HR ORAL 10/31/17 21:00 11/30/17 20:59 11/02/17 09:04 Levofloxacin (Levaquin) 500 mg DAILY ORAL 11/01/17 12:30 11/08/17 12:29 11/02/17 09:04 Mirtazapine (Remeron) 45 mg BEDTIME ORAL 10/31/17 21:00 11/30/17 20:59 11/01/17 21:08 Morphine Sulfate (Morphine Sulfate) 2 mg Q4H PRN IVP MOD-SEVERE PAIN 10/31/17 18:15 11/07/17 18:14 11/01/17 12:07 Ondansetron HCl (Zofran) 4 mg Q6H PRN IVP Nausea & Vomiting 10/31/17 18:30 11/30/17 18:29 Propranolol HCl (Inderal) 40 mg BID ORAL 11/01/17 09:00 12/01/17 08:59 11/02/17 09:04 Assessment/Plan Assessment/Plan (1) Lumbar Radiculopathy (2) Lumbago (3) Cervical Radiculopathy (4) Cervicalgia seen dictated BETH SIDHU Nov 02, 2017 09:15
[2017-11-02 12:00] VITALS: BP 143/92
--- NOTE | 2017-11-02 14:07 | Infectious Diseases Prog Note ---
Assessment/Plan Assessment/Plan A: The patient is a 47-year-old female with Porbable UTI UCx: Mixed growth ? contamination Right flank right groin pain / dysuria Hx of occasional blood in the urine. PTSD History of . US : Positive for 6.3 cm uterine intramural fibroid. PLAN: cont patient on Levaquin d # 2 Monitor urine culture Monitor blood culture. CT of abdomen without contrast, rule out renal stone. Monitor CBC. Monitor BMP. Subjective Allergies: Coded Allergies: DIVALPROEX SODIUM (Verified Allergy, Mild, Shortness of Breath, 02/19/13) QUETIAPINE (Verified Allergy, Unknown, 06/13/15) Subjective afebrile Objective Vital Signs Last 24 Hour Vital Signs Date Time Temp Pulse Resp B/P (MAP) Pulse Ox O2 Delivery O2 Flow Rate FiO2 11/02/17 13:34 97.7 11/02/17 12:00 97.7 75 19 143/92 100 97.7 11/02/17 10:04 98.1 11/02/17 09:05 98.1 11/02/17 09:04 76 135/75 11/02/17 08:00 98.1 76 21 135/75 95 98.1 11/02/17 04:41 97.2 69 20 127/73 100 Room Air 97.2 63 11/02/17 00:00 97.9 79 20 143/67 98 97.9 11/01/17 20:00 98.1 78 18 138/60 98 98.1 11/01/17 18:30 76 146/87 11/01/17 18:30 97.5 11/01/17 16:00 97.5 76 18 146/87 97 97.5 11/01/17 15:18 97.7 Height (Feet): 5 Height (Inches): 3.00 Weight (Pounds): 170 HEENT: anicteric Respiratory/Chest: no respiratory distress Cardiovascular: normal rate Abdomen: soft, non tender Microbiology Date/Time Source Procedure Growth Status 11/01/17 05:55 Urine,Clean Catch Urine Culture - Preliminary Mixed Gram Positive Organism Resulted Laboratory Tests Test 11/01/17 19:15 11/02/17 05:15 Urine HCG, Qualitative Negative White Blood Count 4.6 K/UL (4.8-10.8) L Red Blood Count 4.29 M/UL (4.20-5.40) Hemoglobin 11.3 G/DL (12.0-16.0) L Hematocrit 36.0 % (37.0-47.0) L Mean Corpuscular Volume 84 FL (80-99) Mean Corpuscular Hemoglobin 26.3 PG (27.0-31.0) L Mean Corpuscular Hemoglobin Concent 31.3 G/DL (32.0-36.0) L Red Cell Distribution Width 17.8 % (11.6-14.8) H Platelet Count 285 K/UL (150-450) Mean Platelet Volume 7.3 FL (6.5-10.1) Neutrophils (%) (Auto) 44.4 % (45.0-75.0) L Lymphocytes (%) (Auto) 39.7 % (20.0-45.0) Monocytes (%) (Auto) 10.8 % (1.0-10.0) H Eosinophils (%) (Auto) 3.5 % (0.0-3.0) H Basophils (%) (Auto) 1.7 % (0.0-2.0) Sodium Level 139 MMOL/L (136-145) Potassium Level 4.1 MMOL/L (3.5-5.1) Chloride Level 104 MMOL/L (98-107) Carbon Dioxide Level 26 MMOL/L (21-32) Anion Gap 9 mmol/L (5-15) Blood Urea Nitrogen 9 mg/dL (7-18) Creatinine 0.8 MG/DL (0.55-1.30) Estimat Glomerular Filtration Rate > 60 mL/min (>60) Glucose Level 101 MG/DL (74-106) Calcium Level 9.4 MG/DL (8.5-10.1) Current Medications Medications (Trade) Dose Ordered Sig/Jose Guadalupe Route PRN Reason Start Time Stop Time Status Last Admin Dose Admin Acetaminophen (Tylenol) 650 mg Q4H PRN ORAL Mild Pain/Temp > 100.5 10/31/17 18:15 11/30/17 18:14 Alprazolam (Xanax) 2 mg QHS ORAL 10/31/17 21:00 11/07/17 20:59 11/01/17 21:08 Cyclobenzaprine HCl (Flexeril) 10 mg THREE TIMES A DAY ORAL 11/01/17 09:00 12/01/17 08:59 11/02/17 13:34 Dextrose/Sodium Chloride 1,000 ml @ 60 mls/hr [id number] IV 10/31/17 19:00 11/30/17 18:59 11/02/17 06:43 Levetiracetam (Keppra) 250 mg Q12HR ORAL 10/31/17 21:00 11/30/17 20:59 11/02/17 09:04 Levofloxacin (Levaquin) 500 mg DAILY ORAL 11/01/17 12:30 11/08/17 12:29 11/02/17 09:04 Mirtazapine (Remeron) 45 mg BEDTIME ORAL 10/31/17 21:00 11/30/17 20:59 11/01/17 21:08 Morphine Sulfate (Morphine Sulfate) 2 mg Q4H PRN IVP MOD-SEVERE PAIN 10/31/17 18:15 11/07/17 18:14 11/01/17 12:07 Ondansetron HCl (Zofran) 4 mg Q6H PRN IVP Nausea & Vomiting 10/31/17 18:30 11/30/17 18:29 Propranolol HCl (Inderal) 40 mg BID ORAL 11/01/17 09:00 12/01/17 08:59 11/02/17 09:04 PRADIP BOYLE M.D. Nov 02, 2017 14:07
--- NOTE | 2017-11-02 15:13 | Diagnostic Imaging Report ---
Indication: Abdominal pain Technique: Continuous helical transaxial imaging of the abdomen and pelvis was obtained from the lung bases to the pubic symphysis. No intravenous contrast was administered. Coronal 2-D reformats were also obtained. Automatic Exposure Control was utilized. Total Dose length Product (DLP): 815.[address] Dose Index Volume (CTDIvol): 15.47 mGy Comparison: none Findings: The lung bases are clear. There is a hiatal hernia present. Gallbladder is contracted. There is a hypodensity in the upper pole the left kidney probably a cyst measuring about 3.5 cm. There is no biliary ductal dilatation or free fluid. The appendix is normal. No evidence of bowel obstruction. There is a large mass that is in the fundal region of the uterus likely a fibroid having a measurement of about 6 cm. There is suggestion of a 2 cm right ovarian cyst. The urinary bladder is unremarkable. There is no hydronephrosis. IMPRESSION: No acute findings appreciated. Specifically no evidence of nephrolithiasis or hydronephrosis. Normal appendix 6 cm uterine fibroid Suggestion of a right ovarian cyst Suggestion of a left upper lobe renal cyst. Contracted gallbladder. Hiatal hernia The CT scanner at [facility] is accredited by the [employer] and the scans are performed using dose optimization techniques as appropriate to a performed exam including Automatic Exposure control.
[2017-11-02 16:00] VITALS: BP 127/65
--- NOTE | 2017-11-02 16:30 | Consultation ---
DATE OF CONSULTATION: 11/02/2017 PAIN MANAGEMENT CONSULTATION CONSULTING PHYSICIAN: Alessia Baldwin M.D. REFERRING PHYSICIAN: Darrick Mazariegos D.O. PHYSICIAN SLINGER SEQUINS: Juju Watters CHIEF COMPLAINT: Neck and back pain. HISTORY OF PRESENT ILLNESS: This is a 47-year-old female, who is being seen on the Med/Surg floor of [facility] for initial comprehensive pain management consultation. The patient reports that she has been having neck and back pain for the past two years. It is a constant, chronic pain, rating it at 10/10 at its worst. Describing the pain as a sharp, stabbing, shooting, radiating pain to her right upper and lower extremities. Reporting that she had been injured when a 25 boxes fell on her, pushing her into the wall, and hitting the floor and door. Since that time, the patient has been seen by multiple doctors as an outpatient for this issue, getting injections and had acute exacerbation of the pain causing her to come into the hospital. She is on morphine 2 mg IV every four hours as needed for severe pain, controlling the pain well at this time. The patient is comfortable and she has no signs of distress. PAST MEDICAL HISTORY: Posttraumatic stress disorder and fibroids. PAST SURGICAL HISTORY: . ALLERGIES: Depakote and quetiapine. MEDICATIONS: Levofloxacin, Flexeril, Inderal, Keppra, Remeron, Xanax, Zofran, morphine, and Tylenol. SOCIAL HISTORY: Denies smoking tobacco, drinking alcohol, or IV drug abuse. REVIEW OF SYSTEMS: Denies rash, fever, chills, sweating, dizziness, drowsiness, or change in her weight. No shortness of breath, chest pain, palpitations, or cough. No nausea, vomiting, diarrhea, or blood in the stool or urine. No bowel or bladder incontinence. No dysuria. She is complaining of neck and back pain. PHYSICAL EXAMINATION: GENERAL: Alert, awake, and oriented. VITAL SIGNS: Blood pressure 135/75, heart rate is 76, oxygen saturation 98 , respiratory rate is 21, and temperature 98.1 degrees Fahrenheit. HEENT: PERRLA. NECK: Range of motion is decreased due to the patient's clinical condition with tenderness to paracervical muscles. No adenopathy. LUNGS: Clear. HEART: Regular. ABDOMEN: Obese. BACK: Range of motion is decreased in flexion and extension with tenderness to paraspinal muscles. No tenderness to trapezius and rhomboid muscles. EXTREMITIES: Upper extremities, range of motion is full in all directions. No cyanosis. No clubbing. No edema. Sensory is intact. Reflexes are not obtainable. No adenopathy. Lower extremities, range of motion is full in all directions. Motor is intact. No cyanosis. No clubbing. No edema. Sensory is intact. Reflexes are not obtainable. No adenopathy. ASSESSMENT AND PLAN: This is a 47-year-old female with lumbar radiculopathy, lumbago, cervical radiculopathy, cervicalgia. The patient will be continued on the morphine 2 mg IV every four hours as needed for pain. The patient will continue home medications on discharge. No pain medication prescription needed. She was advised to follow up with her primary care physician as an outpatient and pain specialists for continued care. The patient was discussed with Dr. Baldwin and Dr. Baldwin concurred. We will follow the patient. Thank you very much for the courtesy of this consultation. Alessia Baldwin M.D. BEVERLEY Watters DR: CLAY JOB#: [id number] CC: MARYA
[2017-11-02 20:00] VITALS: BP 130/70
[2017-11-02] MEDS: ALPRAZolam 0.5mg tab ORAL SCH (21:52)
--- NOTE | 2017-11-02 23:00 | Consultation ---
DATE OF CONSULTATION: 11/01/2017 PSYCHOTHERAPY CONSULTATION PROGRESS NOTE TREATING ATTENDING PHYSICIAN: Darrick Mazariegos D.O. HISTORY OF PRESENT ILLNESS: This a 47-year-old female patient. The patient lives in [place]. The patient was brought into the hospital for intractable back pain. The patient had been experiencing anxiety and irritability and for these reasons she was referred for psychotherapeutic services. This clinician assessed this patient. The patient states that she has a long history of anxiety. The patient states that her anxiety exacerbated when her medical condition becomes worsen and when she is the pain and that is what she is experiencing at this time. The patient denies suicidal or homicidal thoughts of ideation. Denies any auditory or visual hallucinations. States her anxiety levels are high when she is in pain. Denies any panic attacks at this time. The patient is cooperative and able to participate in psychotherapy. PAST MEDICAL HISTORY: Includes a history of PTSD and bipolar type. ALLERGIES: The patient has allergies to quetiapine and Depakote. SUBSTANCE ABUSE HISTORY: The patient denies history of illicit substance use. The patient states that she drinks alcohol socially and denies history of smoking cigarettes. PSYCHIATRIC HISTORY: The patient states she has a history of anxiety and PTSD from past trauma. she has been suffering from anxiety. SOCIAL HISTORY: The patient is a 47-year-old female patient lives in [place], financially sustained through [employer]. She is a single female patient. MENTAL STATUS EXAMINATION: The patient is alert and oriented to person, place, and time. Her mood is anxious. Affect is congruent. Thought process, disorganized. Thought content, linear. The patient has fair attention and concentration. DIAGNOSIS: Generalized anxiety disorder. PLAN: This clinician assessed this patient, assessed the patient's mental status. Provided the patient with reality orientation. Provide the patient with supportive psychotherapy. Encouraging the patient to participate in treatment milieu, working on increasing compliance towards the coping skills. Continue with behavioral management. This clinician has reviewed the patient's chart. Discussed the treatment with treatment staff. Maldonado Bains PsyD. DR: Williams JOB#: [id number] CC:
[2017-11-03] VITALS (7 sets, daily range): BP systolic 122–133; BP diastolic 65–77
[2017-11-03 07:30] LABS: BASOPHILS % (AUTO) 0.7 % (0.0-2.0); EOSINOPHILS % (AUTO) 2.7 % (0.0-3.0); HEMATOCRIT 34.7 % (37.0-47.0); HEMOGLOBIN 11.1 G/DL (12.0-16.0); LYMPHOCYTES % (AUTO) 44.1 % (20.0-45.0); MEAN CORPUSCULAR VOLUME 84 FL (80-99); MONOCYTES % (AUTO) 11.8 % (1.0-10.0); NEUTROPHILS % (AUTO) 40.7 % (45.0-75.0); PLATELET COUNT 286 K/UL (150-450); RED BLOOD COUNT 4.15 M/UL (4.20-5.40); RED CELL DISTRIBUTION WIDTH 17.8 % (11.6-14.8); WHITE BLOOD COUNT 4.9 K/UL (4.8-10.8)
[2017-11-03 07:39] LABS: ANION GAP 8 mmol/L (5-15); BLOOD UREA NITROGEN 12 mg/dL (7-18); CALCIUM 9.2 MG/DL (8.5-10.1); CARBON DIOXIDE 26 MMOL/L (21-32); CHLORIDE 103 MMOL/L (98-107); CREATININE 0.7 MG/DL (0.55-1.30); POTASSIUM 4.1 MMOL/L (3.5-5.1); SODIUM 137 MMOL/L (136-145)
--- NOTE | 2017-11-03 09:33 | General Progress Note ---
Assessment/Plan Problem List: (1) PTSD (post-traumatic stress disorder) ICD Codes: F43.10 - Post-traumatic stress disorder, unspecified SNOMED: 45581785 (2) Fibroid ICD Codes: D25.9 - Leiomyoma of uterus, unspecified SNOMED: 78155185 (3) Anemia ICD Codes: D64.9 - Anemia, unspecified SNOMED: 172077468 (4) Low back pain ICD Codes: M54.5 - Low back pain SNOMED: 450217190 (5) Chronic back pain ICD Codes: M54.9 - Dorsalgia, unspecified; G89.29 - Other chronic pain SNOMED: 038189617 (6) Acute exacerbation of chronic low back pain ICD Codes: M54.5 - Low back pain; G89.29 - Other chronic pain SNOMED: 799744963 (7) UTI (urinary tract infection) ICD Codes: N39.0 - Urinary tract infection, site not specified SNOMED: 44462051 (8) Seizure disorder Status: stable, progressing, tolerating diet Assessment/Plan otp t diet abx gi f/u cbc bmp am dc plan Subjective Constitutional: Reports: weakness Allergies: Coded Allergies: DIVALPROEX SODIUM (Verified Allergy, Mild, Shortness of Breath, 02/19/13) QUETIAPINE (Verified Allergy, Unknown, 06/13/15) All Systems: reviewed and negative except above Subjective calm sleepy Objective Last 24 Hour Vital Signs Date Time Temp Pulse Resp B/P (MAP) Pulse Ox O2 Delivery O2 Flow Rate FiO2 11/03/17 08:00 97.5 76 18 133/66 100 97.5 11/03/17 04:00 97.9 85 17 122/65 96 97.9 11/03/17 00:31 98.1 65 19 130/70 96 98.1 11/02/17 20:00 97.5 77 18 130/70 99 97.5 11/02/17 19:27 98.7 11/02/17 18:29 71 127/65 11/02/17 18:28 98.7 11/02/17 16:00 98.7 71 19 127/65 97 98.7 11/02/17 13:34 97.7 11/02/17 12:00 97.7 75 19 143/92 100 97.7 Intake and Output 11/02/17 11/03/17 19:00 07:00 Intake Total 1400 ml 1080 ml Balance 1400 ml 1080 ml Intake Oral 860 ml 480 ml IV Total 540 ml 600 ml # Voids 5 3 Laboratory Tests 11/03/17 05:15: White Blood Count 4.9, Red Blood Count 4.15L, Hemoglobin 11.1L, Hematocrit 34.7L , Mean Corpuscular Volume 84, Mean Corpuscular Hemoglobin 26.8L, Mean Corpuscular Hemoglobin Concent 32.1, Red Cell Distribution Width 17.8H, Platelet Count 286, Mean Platelet Volume 7.6, Neutrophils (%) (Auto) 40.7L, Lymphocytes (%) (Auto) 44.1, Monocytes (%) (Auto) 11.8H, Eosinophils (%) (Auto) 2.7, Basophils (%) (Auto) 0.7, Sodium Level 137, Potassium Level 4.1, Chloride Level 103, Carbon Dioxide Level 26, Anion Gap 8, Blood Urea Nitrogen 12, Creatinine 0.7, Estimat Glomerular Filtration Rate > 60, Glucose Level 100, Calcium Level 9.2 Height (Feet): 5 Height (Inches): 3.00 Weight (Pounds): 170 General Appearance: alert EENT: normal ENT inspection Neck: normal alignment Cardiovascular: normal peripheral pulses, normal rate, regular rhythm Respiratory/Chest: chest wall non-tender, lungs clear, normal breath sounds Abdomen: normal bowel sounds, non tender, soft Extremities: normal inspection Edema: no edema noted Arm (L), no edema noted Arm (R), no edema noted Leg (L), no edema noted Leg (R), no edema noted Pedal (L), no edema noted Pedal (R), no edema noted Generalized Neurologic: responsive, motor weakness Skin: normal pigmentation, warm/dry CHRISTINA HUI Nov 03, 2017 09:32
[2017-11-03] MEDS: Propranolol 40mg tab ORAL SCH ×2 (09:36→18:04)
[2017-11-03] MEDS: Levofloxacin 500mg tab ORAL SCH (09:36)
[2017-11-03] MEDS: Cyclobenzaprine 10mg Tab ORAL SCH ×3 (09:37→18:05)
[2017-11-03] MEDS: D5 1/2NS 1,000 ML IV SCH ×2 (11:49→14:31)
[2017-11-03] MEDS: ALPRAZolam 0.5mg tab ORAL SCH (22:16)
[2017-11-04 00:36] VITALS: BP 129/77
[2017-11-04 08:00] VITALS: BP 121/80
[2017-11-04 08:41] LABS: BASOPHILS % (AUTO) 0.6 % (0.0-2.0); EOSINOPHILS % (AUTO) 2.5 % (0.0-3.0); HEMATOCRIT 36.1 % (37.0-47.0); HEMOGLOBIN 11.5 G/DL (12.0-16.0); LYMPHOCYTES % (AUTO) 44.7 % (20.0-45.0); MEAN CORPUSCULAR VOLUME 84 FL (80-99); MONOCYTES % (AUTO) 11.5 % (1.0-10.0); NEUTROPHILS % (AUTO) 40.7 % (45.0-75.0); PLATELET COUNT 281 K/UL (150-450); RED BLOOD COUNT 4.32 M/UL (4.20-5.40); RED CELL DISTRIBUTION WIDTH 17.6 % (11.6-14.8); WHITE BLOOD COUNT 4.7 K/UL (4.8-10.8)
--- NOTE | 2017-11-04 09:05 | General Progress Note ---
Assessment/Plan Problem List: (1) PTSD (post-traumatic stress disorder) ICD Codes: F43.10 - Post-traumatic stress disorder, unspecified SNOMED: 97079164 (2) Fibroid ICD Codes: D25.9 - Leiomyoma of uterus, unspecified SNOMED: 18729770 (3) Anemia ICD Codes: D64.9 - Anemia, unspecified SNOMED: 874736359 (4) Low back pain ICD Codes: M54.5 - Low back pain SNOMED: 002083299 (5) Chronic back pain ICD Codes: M54.9 - Dorsalgia, unspecified; G89.29 - Other chronic pain SNOMED: 339083797 (6) Acute exacerbation of chronic low back pain ICD Codes: M54.5 - Low back pain; G89.29 - Other chronic pain SNOMED: 036381988 (7) UTI (urinary tract infection) ICD Codes: N39.0 - Urinary tract infection, site not specified SNOMED: 85264207 Qualifiers: Qualified Codes: N30.01 - Acute cystitis with hematuria (8) Seizure disorder Status: stable, progressing, tolerating diet Assessment/Plan otp t diet abx gi f/u cbc bmp am dc plan Subjective Constitutional: Reports: weakness Allergies: Coded Allergies: DIVALPROEX SODIUM (Verified Allergy, Mild, Shortness of Breath, 02/19/13) QUETIAPINE (Verified Allergy, Unknown, 06/13/15) All Systems: reviewed and negative except above Subjective calm sleepy ate ok Objective Last 24 Hour Vital Signs Date Time Temp Pulse Resp B/P (MAP) Pulse Ox O2 Delivery O2 Flow Rate FiO2 11/04/17 00:36 97.5 72 18 129/77 100 Room Air 97.5 11/03/17 20:58 98.0 73 18 131/68 100 Room Air 98.0 11/03/17 18:04 75 132/73 11/03/17 16:00 97.6 77 18 132/73 98 Room Air 97.6 75 11/03/17 12:50 98.6 77 18 133/75 99 Room Air 98.6 11/03/17 12:48 98.6 11/03/17 11:51 98.6 75 18 132/77 99 98.6 11/03/17 11:49 97.5 11/03/17 09:37 97.5 11/03/17 09:36 76 133/66 Intake and Output 11/03/17 11/04/17 19:00 07:00 Intake Total 700 ml 960 ml Balance 700 ml 960 ml Intake Oral 400 ml 360 ml IV Total 300 ml 600 ml # Voids 2 1 Laboratory Tests 11/04/17 07:00: White Blood Count 4.7L, Red Blood Count 4.32, Hemoglobin 11.5L, Hematocrit 36.1L , Mean Corpuscular Volume 84, Mean Corpuscular Hemoglobin 26.6L, Mean Corpuscular Hemoglobin Concent 31.8L, Red Cell Distribution Width 17.6H, Platelet Count 281, Mean Platelet Volume 7.3, Neutrophils (%) (Auto) 40.7L, Lymphocytes (%) (Auto) 44.7, Monocytes (%) (Auto) 11.5H, Eosinophils (%) (Auto) 2.5, Basophils (%) (Auto) 0.6, Sodium Level [Pending], Potassium Level [Pending] , Chloride Level [Pending], Carbon Dioxide Level [Pending], Blood Urea Nitrogen [Pending], Creatinine [Pending], Estimat Glomerular Filtration Rate [Pending], Glucose Level [Pending], Calcium Level [Pending] Height (Feet): 5 Height (Inches): 3.00 Weight (Pounds): 170 General Appearance: lethargic EENT: normal ENT inspection Neck: normal alignment Cardiovascular: normal peripheral pulses, normal rate, regular rhythm Respiratory/Chest: chest wall non-tender, lungs clear, normal breath sounds Abdomen: normal bowel sounds, non tender, soft Extremities: normal inspection Edema: no edema noted Arm (L), no edema noted Arm (R), no edema noted Leg (L), no edema noted Leg (R), no edema noted Pedal (L), no edema noted Pedal (R), no edema noted Generalized Neurologic: responsive, motor weakness Skin: normal pigmentation, warm/dry CHRISTINA HUI Nov 04, 2017 09:04
[2017-11-04 09:18] LABS: ANION GAP 7 mmol/L (5-15); BLOOD UREA NITROGEN 11 mg/dL (7-18); CALCIUM 9.1 MG/DL (8.5-10.1); CARBON DIOXIDE 28 MMOL/L (21-32); CHLORIDE 103 MMOL/L (98-107); CREATININE 0.8 MG/DL (0.55-1.30); POTASSIUM 3.9 MMOL/L (3.5-5.1); SODIUM 138 MMOL/L (136-145)
[2017-11-04] MEDS: Levofloxacin 500mg tab ORAL SCH (09:40)
[2017-11-04] MEDS: Propranolol 40mg tab ORAL SCH ×2 (09:40→18:00)
[2017-11-04] MEDS: Cyclobenzaprine 10mg Tab ORAL SCH ×3 (09:41→18:00)
[2017-11-04 12:00] VITALS: BP 126/82
--- NOTE | 2017-11-04 13:44 | Infectious Diseases Prog Note ---
Assessment/Plan Assessment/Plan A: The patient is a 47-year-old female with Portable UTI UCx: Mixed growth ? contamination Right flank right groin pain / dysuria improved CT of abdomen: no acute findings or renal stone. Hx of occasional blood in the urine. PTSD History of . US : Positive for 6.3 cm uterine intramural fibroid. PLAN: cont patient on Levaquin d # 4/ 5 Monitor urine culture Monitor blood culture. Monitor CBC. Monitor BMP. Subjective Allergies: Coded Allergies: DIVALPROEX SODIUM (Verified Allergy, Mild, Shortness of Breath, 02/19/13) QUETIAPINE (Verified Allergy, Unknown, 06/13/15) Subjective afebrile Objective Vital Signs Last 24 Hour Vital Signs Date Time Temp Pulse Resp B/P (MAP) Pulse Ox O2 Delivery O2 Flow Rate FiO2 11/04/17 12:00 97.5 74 17 126/82 99 Room Air 97.5 11/04/17 10:40 97.7 11/04/17 09:40 90 121/80 11/04/17 08:00 97.7 90 17 121/80 98 Room Air 97.7 11/04/17 00:36 97.5 72 18 129/77 100 Room Air 97.5 11/03/17 20:58 98.0 73 18 131/68 100 Room Air 98.0 11/03/17 18:04 75 132/73 11/03/17 16:00 97.6 77 18 132/73 98 Room Air 97.6 75 Height (Feet): 5 Height (Inches): 3.00 Weight (Pounds): 170 HEENT: anicteric Respiratory/Chest: no respiratory distress Cardiovascular: regularly irregular Abdomen: no organomegaly Laboratory Tests Test 11/04/17 07:00 White Blood Count 4.7 K/UL (4.8-10.8) L Red Blood Count 4.32 M/UL (4.20-5.40) Hemoglobin 11.5 G/DL (12.0-16.0) L Hematocrit 36.1 % (37.0-47.0) L Mean Corpuscular Volume 84 FL (80-99) Mean Corpuscular Hemoglobin 26.6 PG (27.0-31.0) L Mean Corpuscular Hemoglobin Concent 31.8 G/DL (32.0-36.0) L Red Cell Distribution Width 17.6 % (11.6-14.8) H Platelet Count 281 K/UL (150-450) Mean Platelet Volume 7.3 FL (6.5-10.1) Neutrophils (%) (Auto) 40.7 % (45.0-75.0) L Lymphocytes (%) (Auto) 44.7 % (20.0-45.0) Monocytes (%) (Auto) 11.5 % (1.0-10.0) H Eosinophils (%) (Auto) 2.5 % (0.0-3.0) Basophils (%) (Auto) 0.6 % (0.0-2.0) Sodium Level 138 MMOL/L (136-145) Potassium Level 3.9 MMOL/L (3.5-5.1) Chloride Level 103 MMOL/L (98-107) Carbon Dioxide Level 28 MMOL/L (21-32) Anion Gap 7 mmol/L (5-15) Blood Urea Nitrogen 11 mg/dL (7-18) Creatinine 0.8 MG/DL (0.55-1.30) Estimat Glomerular Filtration Rate > 60 mL/min (>60) Glucose Level 93 MG/DL (74-106) Calcium Level 9.1 MG/DL (8.5-10.1) Current Medications Medications (Trade) Dose Ordered Sig/Jose Guadalupe Route PRN Reason Start Time Stop Time Status Last Admin Dose Admin Acetaminophen (Tylenol) 650 mg Q4H PRN ORAL Mild Pain/Temp > 100.5 10/31/17 18:15 11/30/17 18:14 Alprazolam (Xanax) 2 mg QHS ORAL 10/31/17 21:00 11/07/17 20:59 11/03/17 22:16 Cyclobenzaprine HCl (Flexeril) 10 mg THREE TIMES A DAY ORAL 11/01/17 09:00 12/01/17 08:59 11/04/17 12:31 Dextrose/Sodium Chloride 1,000 ml @ 60 mls/hr [id number] IV 10/31/17 19:00 11/30/17 18:59 11/03/17 14:31 Levetiracetam (Keppra) 250 mg Q12HR ORAL 10/31/17 21:00 11/30/17 20:59 11/04/17 09:40 Levofloxacin (Levaquin) 500 mg DAILY ORAL 11/01/17 12:30 11/08/17 12:29 11/04/17 09:40 Mirtazapine (Remeron) 45 mg BEDTIME ORAL 10/31/17 21:00 11/30/17 20:59 11/03/17 22:16 Morphine Sulfate (Morphine Sulfate) 2 mg Q4H PRN IVP MOD-SEVERE PAIN 10/31/17 18:15 11/07/17 18:14 11/01/17 12:07 Ondansetron HCl (Zofran) 4 mg Q6H PRN IVP Nausea & Vomiting 10/31/17 18:30 11/30/17 18:29 Propranolol HCl (Inderal) 40 mg BID ORAL 11/01/17 09:00 12/01/17 08:59 11/04/17 09:40 PRADIP BOYLE M.D. Nov 04, 2017 13:44
[2017-11-04 16:14] VITALS: BP 128/76
--- NOTE | 2017-11-04 17:10 | General Progress Note ---
Assessment/Plan Assessment/Plan (1) Lumbar Radiculopathy (2) Lumbago (3) Cervical Radiculopathy (4) Cervicalgia Pt to be continued on Morphine as needed D/w Dr. Baldwin and he concurred. Subjective Date patient seen: Nov 04, 2017 Time patient seen: 04:45 - pm Allergies: Coded Allergies: DIVALPROEX SODIUM (Verified Allergy, Mild, Shortness of Breath, 02/19/13) QUETIAPINE (Verified Allergy, Unknown, 06/13/15) Subjective REVIEW OF SYSTEMS: Denies rash, fever, chills, sweating, dizziness, drowsiness, or change in her weight. No shortness of breath, chest pain, palpitations, or cough. No nausea, vomiting, diarrhea, or blood in the stool or urine. No bowel or bladder incontinence. No dysuria. She is complaining of neck and back pain. SUBJECTIVE: Patient is in bed and says she is feeling better. No signs of pain or distress at this time. Objective Last 24 Hour Vital Signs Date Time Temp Pulse Resp B/P (MAP) Pulse Ox O2 Delivery O2 Flow Rate FiO2 11/04/17 16:14 98.0 78 20 128/76 97 Room Air 98.0 11/04/17 12:00 97.5 74 17 126/82 99 Room Air 97.5 11/04/17 10:40 97.7 11/04/17 09:40 90 121/80 11/04/17 08:00 97.7 90 17 121/80 98 Room Air 97.7 11/04/17 00:36 97.5 72 18 129/77 100 Room Air 97.5 11/03/17 20:58 98.0 73 18 131/68 100 Room Air 98.0 11/03/17 18:04 75 132/73 Intake and Output 11/03/17 11/04/17 19:00 07:00 Intake Total 700 ml 960 ml Balance 700 ml 960 ml Intake Oral 400 ml 360 ml IV Total 300 ml 600 ml # Voids 2 1 Laboratory Tests 11/04/17 07:00: White Blood Count 4.7L, Red Blood Count 4.32, Hemoglobin 11.5L, Hematocrit 36.1L , Mean Corpuscular Volume 84, Mean Corpuscular Hemoglobin 26.6L, Mean Corpuscular Hemoglobin Concent 31.8L, Red Cell Distribution Width 17.6H, Platelet Count 281, Mean Platelet Volume 7.3, Neutrophils (%) (Auto) 40.7L, Lymphocytes (%) (Auto) 44.7, Monocytes (%) (Auto) 11.5H, Eosinophils (%) (Auto) 2.5, Basophils (%) (Auto) 0.6, Sodium Level 138, Potassium Level 3.9, Chloride Level 103, Carbon Dioxide Level 28, Anion Gap 7, Blood Urea Nitrogen 11, Creatinine 0.8, Estimat Glomerular Filtration Rate > 60, Glucose Level 93, Calcium Level 9.1 Height (Feet): 5 Height (Inches): 3.00 Weight (Pounds): 170 Objective GENERAL: Alert, awake, and oriented. HEENT: PERRLA. NECK: tenderness to paracervical muscles. LUNGS: Clear. HEART: Regular. ABDOMEN: Obese. EXTREMITIES: No cyanosis. No clubbing. No edema. NEURO: No changes. BETH SIDHU Nov 04, 2017 17:10
[2017-11-04] MEDS ORDERED: D5 1/2NS 1000ml IV ONE (17:29)
[2017-11-04 20:00] VITALS: BP 131/78
[2017-11-04] MEDS: ALPRAZolam 0.5mg tab ORAL SCH (20:40)
[2017-11-04] MEDS: Morphine Sulfate 2mg/ml Inj IVP PRN (21:45)
[2017-11-04] MEDS: D5 1/2NS 1,000 ML IV SCH ×2 (22:30→23:00)
[2017-11-05 04:00] VITALS: BP 114/72
[2017-11-05 08:00] VITALS: BP 133/84
--- NOTE | 2017-11-05 08:44 | General Progress Note ---
Assessment/Plan Assessment/Plan (1) Lumbar Radiculopathy (2) Lumbago (3) Cervical Radiculopathy (4) Cervicalgia Pt to be continued on Morphine as needed D/w Dr. Baldwin and he concurred. Subjective Date patient seen: Nov 05, 2017 Time patient seen: 07:00 - am Allergies: Coded Allergies: DIVALPROEX SODIUM (Verified Allergy, Mild, Shortness of Breath, 02/19/13) QUETIAPINE (Verified Allergy, Unknown, 06/13/15) Subjective REVIEW OF SYSTEMS: Denies rash, fever, chills, sweating, dizziness, drowsiness, or change in her weight. No shortness of breath, chest pain, palpitations, or cough. No nausea, vomiting, diarrhea, or blood in the stool or urine. No bowel or bladder incontinence. No dysuria. She is complaining of neck and back pain. SUBJECTIVE: Patient reports that her pain has been well tolerated and is stable on the Morphine. She has no new complaints. Pt is looking forward to being discharged home as per wet roller and will continue the home medications no Rx needed. Objective Last 24 Hour Vital Signs Date Time Temp Pulse Resp B/P (MAP) Pulse Ox O2 Delivery O2 Flow Rate FiO2 11/05/17 04:00 97.5 81 18 114/72 99 Room Air 97.5 11/04/17 21:45 98.0 11/04/17 20:00 97.9 82 20 131/78 98 Room Air 97.9 11/04/17 18:59 98.0 11/04/17 18:00 78 128/76 11/04/17 16:14 98.0 78 20 128/76 97 Room Air 98.0 11/04/17 12:00 97.5 74 17 126/82 99 Room Air 97.5 11/04/17 09:40 90 121/80 Intake and Output 11/04/17 11/05/17 19:00 07:00 Intake Total 240 ml 1020 ml Balance 240 ml 1020 ml Intake Oral 240 ml 480 ml IV Total 540 ml # Voids 1 1 Height (Feet): 5 Height (Inches): 3.00 Weight (Pounds): 170 Objective GENERAL: Alert, awake, and oriented. HEENT: PERRLA. NECK: tenderness to paracervical muscles. LUNGS: Clear. HEART: Regular. ABDOMEN: Obese. EXTREMITIES: No cyanosis. No clubbing. No edema. NEURO: No changes. BETH SIDHU Nov 05, 2017 08:44
[2017-11-05] MEDS: Propranolol 40mg tab ORAL SCH (10:03)
[2017-11-05] MEDS: Levofloxacin 500mg tab ORAL SCH (10:03)
[2017-11-05] MEDS: Cyclobenzaprine 10mg Tab ORAL SCH (10:04)
[2017-11-05 10:24] LABS: BASOPHILS % (AUTO) 1.4 % (0.0-2.0); EOSINOPHILS % (AUTO) 2.4 % (0.0-3.0); HEMATOCRIT 34.3 % (37.0-47.0); HEMOGLOBIN 10.9 G/DL (12.0-16.0); LYMPHOCYTES % (AUTO) 48.5 % (20.0-45.0); MEAN CORPUSCULAR VOLUME 84 FL (80-99); MONOCYTES % (AUTO) 11.3 % (1.0-10.0); NEUTROPHILS % (AUTO) 36.4 % (45.0-75.0); PLATELET COUNT 271 K/UL (150-450); RED CELL DISTRIBUTION WIDTH 17.4 % (11.6-14.8); WHITE BLOOD COUNT 5.3 K/UL (4.8-10.8)
[2017-11-05 10:46] LABS: ANION GAP 9 mmol/L (5-15); BLOOD UREA NITROGEN 10 mg/dL (7-18); CARBON DIOXIDE 26 MMOL/L (21-32); CHLORIDE 106 MMOL/L (98-107); CREATININE 0.8 MG/DL (0.55-1.30); POTASSIUM 3.8 MMOL/L (3.5-5.1); SODIUM 141 MMOL/L (136-145)
[2017-11-05 12:10] VITALS: BP 127/78
--- NOTE | 2017-11-05 14:01 | General Progress Note ---
Assessment/Plan Problem List: (1) PTSD (post-traumatic stress disorder) ICD Codes: F43.10 - Post-traumatic stress disorder, unspecified SNOMED: 47664921 (2) Fibroid ICD Codes: D25.9 - Leiomyoma of uterus, unspecified SNOMED: 74236124 (3) Anemia ICD Codes: D64.9 - Anemia, unspecified SNOMED: 440055595 (4) Low back pain ICD Codes: M54.5 - Low back pain SNOMED: 234426721 (5) Chronic back pain ICD Codes: M54.9 - Dorsalgia, unspecified; G89.29 - Other chronic pain SNOMED: 114474145 (6) Acute exacerbation of chronic low back pain ICD Codes: M54.5 - Low back pain; G89.29 - Other chronic pain SNOMED: 096725153 (7) UTI (urinary tract infection) ICD Codes: N39.0 - Urinary tract infection, site not specified SNOMED: 80194368 Qualifiers: Qualified Codes: N30.01 - Acute cystitis with hematuria (8) Seizure disorder Status: stable, progressing, tolerating diet Assessment/Plan otp t diet abx gi f/u dc w hh if clear Subjective Constitutional: Reports: weakness Allergies: Coded Allergies: DIVALPROEX SODIUM (Verified Allergy, Mild, Shortness of Breath, 02/19/13) QUETIAPINE (Verified Allergy, Unknown, 06/13/15) All Systems: reviewed and negative except above Subjective calm sleepy ate ok Objective Last 24 Hour Vital Signs Date Time Temp Pulse Resp B/P (MAP) Pulse Ox O2 Delivery O2 Flow Rate FiO2 11/05/17 12:10 97.8 87 18 127/78 98 Room Air 97.8 11/05/17 11:03 98.3 11/05/17 10:04 98.3 11/05/17 10:03 92 133/84 11/05/17 08:00 98.3 92 18 133/84 98 Room Air 98.3 11/05/17 04:00 97.5 81 18 114/72 99 Room Air 97.5 11/04/17 21:45 98.0 11/04/17 20:00 97.9 82 20 131/78 98 Room Air 97.9 11/04/17 18:00 78 128/76 11/04/17 16:14 98.0 78 20 128/76 97 Room Air 98.0 Intake and Output 11/04/17 11/05/17 19:00 07:00 Intake Total 240 ml 1020 ml Balance 240 ml 1020 ml Intake Oral 240 ml 480 ml IV Total 540 ml # Voids 1 1 Laboratory Tests 11/05/17 09:50: White Blood Count 5.3, Red Blood Count 4.10L, Hemoglobin 10.9L, Hematocrit 34.3L , Mean Corpuscular Volume 84, Mean Corpuscular Hemoglobin 26.5L, Mean Corpuscular Hemoglobin Concent 31.7L, Red Cell Distribution Width 17.4H, Platelet Count 271, Mean Platelet Volume 7.5, Neutrophils (%) (Auto) 36.4L, Lymphocytes (%) (Auto) 48.5H, Monocytes (%) (Auto) 11.3H, Eosinophils (%) (Auto ) 2.4, Basophils (%) (Auto) 1.4, Sodium Level 141, Potassium Level 3.8, Chloride Level 106, Carbon Dioxide Level 26, Anion Gap 9, Blood Urea Nitrogen 10 , Creatinine 0.8, Estimat Glomerular Filtration Rate > 60, Glucose Level 106, Calcium Level 9.0 Height (Feet): 5 Height (Inches): 3.00 Weight (Pounds): 170 General Appearance: alert EENT: normal ENT inspection Neck: normal alignment Cardiovascular: normal peripheral pulses, normal rate, regular rhythm Respiratory/Chest: chest wall non-tender, lungs clear, normal breath sounds Abdomen: normal bowel sounds, non tender, soft Extremities: normal inspection Edema: no edema noted Arm (L), no edema noted Arm (R), no edema noted Leg (L), no edema noted Leg (R), no edema noted Pedal (L), no edema noted Pedal (R), no edema noted Generalized Neurologic: responsive Skin: normal pigmentation, warm/dry CHRISTINA HUI Nov 05, 2017 14:01
[2017-11-05] MEDS ORDERED: KEPPRA500 M4 ORAL (16:01)
[2017-11-05] MEDS ORDERED: INDERAL20 MG GT (16:03)
[2017-11-05] MEDS ORDERED: D5W 550ml IV ONE (17:09)
[2017-11-05] MEDS ORDERED: D5 1/2NS 1000ml IV ONE (17:09)
--- NOTE | 2017-11-05 21:59 | Infectious Diseases Prog Note ---
Assessment/Plan Assessment/Plan A: The patient is a 47-year-old female with Portable UTI UCx: Mixed growth ? contamination Right flank right groin pain / dysuria improved CT of abdomen: no acute findings or renal stone. Hx of occasional blood in the urine. PTSD History of . US : Positive for 6.3 cm uterine intramural fibroid. PLAN: cont patient on Levaquin d # 5/ 5 ok to Dc pt off of Ab Rx Monitor urine culture Monitor blood culture. Monitor CBC. Monitor BMP. Subjective Allergies: Coded Allergies: DIVALPROEX SODIUM (Verified Allergy, Mild, Shortness of Breath, 02/19/13) QUETIAPINE (Verified Allergy, Unknown, 06/13/15) Subjective afebrile Objective Vital Signs Last 24 Hour Vital Signs Date Time Temp Pulse Resp B/P (MAP) Pulse Ox O2 Delivery O2 Flow Rate FiO2 11/05/17 12:10 97.8 87 18 127/78 98 Room Air 97.8 11/05/17 11:03 98.3 11/05/17 10:04 98.3 11/05/17 10:03 92 133/84 11/05/17 08:00 98.3 92 18 133/84 98 Room Air 98.3 11/05/17 04:00 97.5 81 18 114/72 99 Room Air 97.5 Height (Feet): 5 Height (Inches): 3.00 Weight (Pounds): 170 HEENT: anicteric Respiratory/Chest: no accessory muscle use Cardiovascular: regular rhythm Abdomen: non distended Laboratory Tests Test 11/05/17 09:50 White Blood Count 5.3 K/UL (4.8-10.8) Red Blood Count 4.10 M/UL (4.20-5.40) L Hemoglobin 10.9 G/DL (12.0-16.0) L Hematocrit 34.3 % (37.0-47.0) L Mean Corpuscular Volume 84 FL (80-99) Mean Corpuscular Hemoglobin 26.5 PG (27.0-31.0) L Mean Corpuscular Hemoglobin Concent 31.7 G/DL (32.0-36.0) L Red Cell Distribution Width 17.4 % (11.6-14.8) H Platelet Count 271 K/UL (150-450) Mean Platelet Volume 7.5 FL (6.5-10.1) Neutrophils (%) (Auto) 36.4 % (45.0-75.0) L Lymphocytes (%) (Auto) 48.5 % (20.0-45.0) H Monocytes (%) (Auto) 11.3 % (1.0-10.0) H Eosinophils (%) (Auto) 2.4 % (0.0-3.0) Basophils (%) (Auto) 1.4 % (0.0-2.0) Sodium Level 141 MMOL/L (136-145) Potassium Level 3.8 MMOL/L (3.5-5.1) Chloride Level 106 MMOL/L (98-107) Carbon Dioxide Level 26 MMOL/L (21-32) Anion Gap 9 mmol/L (5-15) Blood Urea Nitrogen 10 mg/dL (7-18) Creatinine 0.8 MG/DL (0.55-1.30) Estimat Glomerular Filtration Rate > 60 mL/min (>60) Glucose Level 106 MG/DL (74-106) Calcium Level 9.0 MG/DL (8.5-10.1) PRADIP BOYLE M.D. Nov 05, 2017 21:59
--- NOTE | 2017-11-08 12:38 | Discharge Summary ---
Discharge Summary Hospital Course Date of Admission Oct 31, 2017 at 13:45 Date of Discharge Nov 05, 2017 at 17:10 Admitting Diagnosis interactable back pain HPI Brandy Collins is a 47 year old female who was admitted on Oct 31, 2017 at 13: 45 for Interactable Back Pain Hospital Course dc summary #[id number] Discharge Medications Continued Medications: Alprazolam* (Xanax*) 2 Mg Tablet 2 MG ORAL HS, #30 TAB 0 Refills Cyclobenzaprine Hcl* (Flexeril*) 10 Mg Tablet 10 MG ORAL THREE TIMES A DAY, #12 TAB Ibuprofen* (Motrin*) 600 Mg Tablet 600 MG ORAL Q6H PRN for For Pain, #12 TAB Levetiracetam (Keppra) 500 Mg Tablet 250 MG ORAL EVERY 12 HOURS, #60 TAB 0 Refills Mirtazapine* (Remeron*) 45 Mg Tablet 45 MG ORAL DAILY, TAB Propranolol HCl (Propranolol HCl) 20 Mg Tablet 40 MG GT BID, TAB Discharge Condition Upon Discharge: stable Discharge Disposition Patient was discharged to Home with [facility] Discharge Diagnoses: Discharge Instructions Discharge Instructions Special Instructions I have been assigned to complete a D/C Summary on this account. I was not involved in the patient management Marilyn Allen NP ([place]) Nov 08, 2017 12:38
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
[2017-11-20] MEDS ORDERED: ALPRAZOLAM1 MG ORAL (21:52)
[2017-11-20] MEDS ORDERED: MIRTAZAPINE15 MG ORAL (21:52)
[2017-11-21] MEDS ORDERED: NAPROXEN375 M2 ORAL (01:38)
[2017-11-24] MEDS ORDERED: BACLOFEN10 MG ORAL (10:49)
[2017-11-24] MEDS ORDERED: NAPROXEN CR500 MG PO (10:51)
[2017-11-24] MEDS ORDERED: NEURONTIN300 MG ORAL (10:52)
[2017-11-24] MEDS ORDERED: TRAMADOL HCL50 MG ORAL (10:53)
== END 2017-11-05 17:10 | disposition home health service (06) | DRG 552 ==
LOC: EDBD 12:31 → EMR 13:06 → 4W 13:45 → EDBEDREQ 15:59 → 3E 11-03 12:47
DX: M54.16 Radiculopathy, lumbar region (principal); N39.0 Urinary tract infection, site not specified; D25.1 Intramural leiomyoma of uterus; M54.12 Radiculopathy, cervical region; D64.9 Anemia, unspecified; F43.10 Post-traumatic stress disorder, unspecified; G40.909 Epilepsy, unspecified, not intractable, without status epilepticus; Z88.8 Allergy status to other drugs, medicaments and biological substances
CPT/HCPCS: 36415; 74176; 76856; 80048; 80053; 80299; 81003; 81025; 85025; 87040; 87086; 99285

== ENCOUNTER 2018-03-09 15:16 | Emergency (ER) | payer MEDICARE, MEDICAID ==
[~2018-03-09] VITALS: Ht 160 cm; Wt 81.6 kg
[~2018-03-09 15:16] MED LIST changes: +ALPRAZOLAM1 MG ORAL; +BACLOFEN10 MG ORAL; +INDERAL20 MG GT; +KEPPRA500 M4 ORAL; +MIRTAZAPINE15 MG ORAL; +NAPROXEN CR500 MG PO; +NAPROXEN375 M2 ORAL; +NEURONTIN300 MG ORAL
[2018-03-09] MEDS ORDERED: Dexamethasone 4mg/ml vial IVP ONE (16:30)
[2018-03-09] MEDS ORDERED: Ketorolac 30mg Inj IV ONE (16:30)
[2018-03-09] MEDS ORDERED: ROBAXIN-750750 MG PO (17:13)
[2018-03-09] MEDS ORDERED: LIDOCAINE700 M1 TP (17:13)
[2018-03-09 17:32] LABS: APPEARANCE,URINE SLIGHTLY CLOUDY; BILIRUBIN, URINE NEGATIVE (NEGATIVE); COLOR,URINE AMBER; GLUCOSE, URINE (UA) NEGATIVE (NEGATIVE); KETONES,URINE NEGATIVE (NEGATIVE); LEUKOCYTE ESTERASE ,URINE 1+ (NEGATIVE); NITRITE,URINE NEGATIVE (NEGATIVE); PH,URINE 5 (4.5-8.0); PROTEIN,URINE 1+ (NEGATIVE); UROBILINOGEN,URINE NORMAL MG/DL (0.0-1.0)
[2018-03-09 18:01] VITALS: BP 161/82
[2018-03-09 18:27] VITALS: BP 161/82
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
== END 2018-03-09 18:28 | disposition home or self-care (01) ==
LOC: EDBD 15:16 → EMR 17:59
DX: M54.5 Low back pain (principal); M51.26 Other intervertebral disc displacement, lumbar region; G89.29 Other chronic pain
CPT/HCPCS: 81003; 96372; 99284; J1885

== ENCOUNTER 2018-06-23 14:34 | Emergency (ER) | payer MEDICARE, MEDICAID ==
[~2018-06-23] VITALS: Ht 160 cm; Wt 81.6 kg
[~2018-06-23 14:34] MED LIST changes: +LIDOCAINE700 M1 TP
[2018-06-23 15:10] VITALS: BP 152/95
[2018-06-23] MEDS ORDERED: Morphine Sulfate 4mg/ml Inj (IV/IM USE ONLY) IVP ONE ×2 (15:30→17:30)
[2018-06-23] MEDS ORDERED: Ketorolac 30mg Inj IV ONE (15:30)
[2018-06-23 16:51] LABS: BASOPHILS % (AUTO) 1.3 % (0.0-2.0); EOSINOPHILS % (AUTO) 1.5 % (0.0-3.0); HEMATOCRIT 29.9 % (37.0-47.0); HEMOGLOBIN 9.6 G/DL (12.0-16.0); LYMPHOCYTES % (AUTO) 46.4 % (20.0-45.0); MEAN CORPUSCULAR VOLUME 87 FL (80-99); MONOCYTES % (AUTO) 8.5 % (1.0-10.0); NEUTROPHILS % (AUTO) 42.4 % (45.0-75.0); PLATELET COUNT 248 K/UL (150-450); RED BLOOD COUNT 3.44 M/UL (4.20-5.40); RED CELL DISTRIBUTION WIDTH 13.9 % (11.6-14.8); WHITE BLOOD COUNT 7.2 K/UL (4.8-10.8)
[2018-06-23 17:03] LABS: ANION GAP 11 mmol/L (5-15); BLOOD UREA NITROGEN 5 mg/dL (7-18); CARBON DIOXIDE 24 MMOL/L (21-32); CHLORIDE 105 MMOL/L (98-107); CREATININE 0.7 MG/DL (0.55-1.30); POTASSIUM 3.5 MMOL/L (3.5-5.1); SODIUM 140 MMOL/L (136-145)
[2018-06-23 17:09] LABS: ALANINE AMINOTRANSFERASE 17 U/L (12-78); ALBUMIN 3.4 G/DL (3.4-5.0); ALBUMIN/GLOBULIN RATIO 0.8 (1.0-2.7); ALKALINE PHOSPHATASE 75 U/L (46-116); ASPARTATE AMINO TRANSFERASE 19 U/L (15-37); BILIRUBIN,TOTAL 0.2 MG/DL (0.2-1.0)
[2018-06-23 17:30] LABS: APPEARANCE,URINE TURBID; BILIRUBIN, URINE 1+ (NEGATIVE); GLUCOSE, URINE (UA) NEGATIVE (NEGATIVE); KETONES,URINE 1+ (NEGATIVE); LEUKOCYTE ESTERASE ,URINE 2+ (NEGATIVE); NITRITE,URINE NEGATIVE (NEGATIVE); PH,URINE 6.5 (4.5-8.0); PROTEIN,URINE 3+ (NEGATIVE); UROBILINOGEN,URINE 1 MG/DL (0.0-1.0)
[2018-06-23 17:38] LABS: COLOR,URINE BROWN
[2018-06-23] MEDS ORDERED: LIDODERM700 M1 TOPIC (18:35)
[2018-06-23] MEDS ORDERED: NORCO 10-325 T1 EACH ORAL (18:35)
[2018-06-23] MEDS ORDERED: IBUPROFEN600 MG ORAL (18:35)
[2018-06-23] MEDS ORDERED: ROBAXIN-750750 MG PO (18:35)
[2018-06-23 18:43] VITALS: BP 144/90
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
== END 2018-06-23 18:45 | disposition home or self-care (01) ==
LOC: EMR 15:08
DX: M51.26 Other intervertebral disc displacement, lumbar region (principal); G89.29 Other chronic pain; F43.10 Post-traumatic stress disorder, unspecified
CPT/HCPCS: 36415; 80053; 81003; 85025; 87086; 96374; 96375; 96376; 99284; J1885; J2270

== ENCOUNTER 2018-06-26 17:08 | Emergency (ER) | payer MEDICARE, MEDICAID ==
[~2018-06-26] VITALS: Ht 165.1 cm; Wt 77.1 kg
[~2018-06-26 17:08] MED LIST changes: +LIDODERM700 M1 TOPIC; +NORCO 10-325 T1 EACH ORAL
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
[2018-06-26 17:50] VITALS: BP 136/85
[2018-06-26 17:53] VITALS: BP 136/85
== END 2018-06-26 17:53 | disposition home or self-care (01) ==
LOC: EDBD 17:08 → EMR 17:35
DX: M54.5 Low back pain (principal); G89.29 Other chronic pain
CPT/HCPCS: 99283

== ENCOUNTER 2018-07-27 17:50 | Emergency (ER) | payer MEDICAID, MEDICARE ==
[~2018-07-27] VITALS: Ht 160 cm; Wt 77.1 kg
[2018-07-27 18:12] VITALS: BP 119/72
[2018-07-27] MEDS ORDERED: Methocarbamol 500mg tab ORAL ONE (18:30)
--- NOTE | 2018-07-27 18:47 | Emergency Room Report ---
History of Present Illness General Chief Complaint: Back Pain-No Injury Source: Patient Present Illness HPI 48-year-old female presents to the emergency department complaining of 10 out of 10 in severity exacerbation of her chronic pain in the low back with some sciatic symptoms. Patient denies changes in the character of her pain she states that she has been unable to make an appointment with chronic pain management after given referral by her PCP. Patient states that she is currently been using anti-inflammatory gel as well as taking ibuprofen which is not providing any relief. She denies new trauma or fall, urinary incontinence, urinary retention, paresthesias or new onset weakness in the extremities. Patient reports that the pain is for the most part constant and describes as a dull ache she denies tearing sensation, abdominal pain, dizziness or near- syncope. Patient reports palpation is no aggravating factor she denies recent spinal procedures/injections or history neoplastic disease. Denies CP. Allergies: Coded Allergies: DIVALPROEX SODIUM (Verified Allergy, Mild, Shortness of Breath, 02/19/13) QUETIAPINE (Verified Allergy, Unknown, 06/13/15) Patient History Past Medical History: see triage record Past Surgical History: none Pertinent Family History: none Last Menstrual Period: 07/18/18 Now: No Reviewed Nursing Documentation: PMH: Agreed; PSxH: Agreed Nursing Documentation-PMH Hx Cardiac Problems: No Hx Cancer: No Hx Gastrointestinal Problems: No Hx Neurological Problems: Yes - PTSD, ANXIETY Hx Seizures: Yes Review of Systems All Other Systems: negative except mentioned in HPI Physical Exam Vital Signs Date Time Temp Pulse Resp B/P (MAP) Pulse Ox O2 Delivery O2 Flow Rate FiO2 07/27/18 17:54 98.1 72 18 119/72 99 Room Air Sp02 EP Interpretation: reviewed, normal General Appearance: alert, GCS 15, non-toxic, mild distress Head: normocephalic, atraumatic ENT: hearing grossly normal, normal voice Neck: full range of motion Respiratory: chest non-tender, lungs clear, normal breath sounds, speaking full sentences Cardiovascular #1: regular rate, rhythm, no edema Gastrointestinal: normal bowel sounds, non tender, soft, non-distended, no pulsatile mass Rectal: deferred Genitourinary: normal inspection, no CVA tenderness Musculoskeletal: back normal, gait/station normal - pt. uses cane for assistance, normal range of motion, tender - Tenderness to palpation to paraspinal muscles of the lower back with midline tenderness. Pt. negative straight leg raise. Neurologic: alert, oriented x3, responsive, motor strength/tone normal, sensory intact, speech normal, grossly normal Psychiatric: judgement/insight normal Skin: normal color, no rash, warm/dry, well hydrated Medical Decision Making PA Attestation Dr. Boyle is my supervising Physician whom patient management has been discussed with. Diagnostic Impression: Primary Impression: Exacerbation of chronic back pain ER Course 48-year-old female presents to the emergency department complaining of 10 out of 10 in severity exacerbation of her chronic pain in the low back with some sciatic symptoms. Patient denies changes in the character of her pain she states that she has been unable to make an appointment with chronic pain management after given referral by her PCP. Patient states that she is currently been using anti-inflammatory gel as well as taking ibuprofen which is not providing any relief. She denies new trauma or fall, urinary incontinence, urinary retention, paresthesias or new onset weakness in the extremities. Patient reports that the pain is for the most part constant and describes as a dull ache she denies tearing sensation, abdominal pain, dizziness or near- syncope. Patient reports palpation is no aggravating factor she denies recent spinal procedures/injections or history neoplastic disease. Denies CP. Ddx considered: epidural abscess, fracture, sprain/strain, meningitis, spinal chord injury, sciatica, cauda equina, Pyelonephritis, renal calculi just to name a few. Vital signs reviewed and are WNL during ED visit. Pt. is afebrile with no signs of infection No new symptoms, and denies recent trauma. No saddle anesthesia noted, Pt. denies incontinence Neurovascular is intact ROM is limited due to pain *Tenderness to palpation to paraspinal muscles of the lower back with midline tenderness. *Pt. describes pain today as moderate and radiates across the lower back. ORDERS: none warranted at this time. INTERVENTIONS: - Robaxin 1g - Lidoderm TP -Tylenol 650mg PO D/W Pt. that for further pain management is it recommended to consult PCP or a Chronic Pain management doctor. A provider who can safely prescribe controlled substances with close follow up. DISCHARGE: At this time pt. is stable for d/c to home. Will provide printed patient care instructions, and any necessary prescriptions. Care plan and follow up instructions have been discussed with the patient prior to discharge. Last Vital Signs Date Time Temp Pulse Resp B/P (MAP) Pulse Ox O2 Delivery O2 Flow Rate FiO2 07/27/18 18:12 98.1 83 18 119/72 99 Room Air Disposition: HOME, SELF-CARE Condition: Stable Scripts Lidocaine (Lidoderm) 1 Each Adh..patch 1 PATCH TOPIC DAILY, #30 PATCH 0 Refills Patch(es) may remain in place for up to 12 hours in any 24-hour period. Prov: Shweta Yan 07/27/18 Referrals: NOT CHOSEN IPA/MD,REFERRING (PCP) Patient Instructions: Back Pain, Adult Additional Instructions: Take medications as directed. Follow up with a Primary Care Provider in 3-days, even if your symptoms have resolved. --Please review list of primary care clinics, if you do not already have a primary care provider Return sooner to ED if new symptoms occur, or current symptoms become worse. Do not drink alcohol, drive, or operate heavy machinery while taking Robaxin ( Muscle Relaxers) as this may cause drowsiness. - Please note that this Emergency Department Report was dictated using [employer] control electronics operator technology software, occasionally this can lead to erroneous entry secondary to interpretation by the dictation equipment. Shweta Yan Jul 27, 2018 18:47
[2018-07-27] MEDS ORDERED: LIDODERM700 M1 TOPIC (18:49)
[2018-07-27] MEDS ORDERED: ROBAXIN-750750 MG PO (18:49)
[2018-07-27] MEDS ORDERED: TIZANIDINE HCL4 MG ORAL (19:03)
[2018-07-27 19:22] VITALS: BP 122/75
== END 2018-07-27 19:22 | disposition home or self-care (01) ==
LOC: EDBD 17:50 → EMR 18:24
DX: M54.5 Low back pain (principal); G89.29 Other chronic pain; F43.10 Post-traumatic stress disorder, unspecified; F41.9 Anxiety disorder, unspecified; Z88.8 Allergy status to other drugs, medicaments and biological substances
CPT/HCPCS: 99283

== ENCOUNTER 2018-09-22 16:20 | Emergency (ER) | payer MEDICARE, MEDICAID ==
[~2018-09-22] VITALS: Ht 160 cm; Wt 86.2 kg
[~2018-09-22 16:20] MED LIST changes: +TIZANIDINE HCL4 MG ORAL
--- NOTE | 2018-09-22 16:25 | NUR ---
ED Nurse Note: Pt came into the ER w/ complaints of back pain x 3 years. Pt is rating the pain 10/10 non radiating. A + O x4. Pt states it is hard for her to walk. Skin warm to touch. Sister at the bedside.
[2018-09-22 16:26] VITALS: BP 120/81
[2018-09-22] MEDS ORDERED: Ketorolac 60mg Inj IM ONE (17:00)
[2018-09-22] MEDS ORDERED: HYDROcodone/Acetamin 5/325 tab ORAL ONE (17:00)
[2018-09-22] MEDS ORDERED: ROBAXIN-750750 MG PO (17:56)
[2018-09-22 17:59] VITALS: BP 120/78
--- NOTE | 2018-09-22 18:00 | NUR ---
ED Nurse Note: Discharge instructions given to pt. Answered all questions. Verbalized understanding. No acute distress noted. ID band removed. Left ER w/ all belongings and w/ a steady gait.
--- NOTE | 2018-09-22 18:20 | Emergency Room Report ---
History of Present Illness General Chief Complaint: Back Pain-No Injury Source: Patient, Family Member, Medical Record Present Illness HPI Patient is a 48-year-old female presenting for lower back pain. She has been seen in this emergency department many times in the past for the same complaint. She describes this as a chronic condition and this feels the same as previous complaints of back pain. Pain is a 10 out of 10 sharp sensation to the right lower back and radiates to the right leg. She states that this pain initially began 3 years prior after a metal object hit her lower back. She has been trying to see pain management but states that she is unable to make appointment. She uses a topical cream for pain and states that this usually helps. She denies other symptoms including nausea, vomiting, fever, chills, abdominal pain, dysuria, hematuria, vaginal discharge, urinary incontinence, bowel incontinence, diarrhea, constipation, chest pain, shortness of breath Allergies: Coded Allergies: DIVALPROEX SODIUM (Verified Allergy, Mild, Shortness of Breath, 02/19/13) QUETIAPINE (Verified Allergy, Unknown, 06/13/15) Patient History Past Medical History: see triage record Pertinent Family History: none Now: No Reviewed Nursing Documentation: PMH: Agreed; PSxH: Agreed Nursing Documentation-PMH Hx Cardiac Problems: No Hx Cancer: No Hx Gastrointestinal Problems: No Hx Neurological Problems: Yes - PTSD, ANXIETY Hx Seizures: Yes Review of Systems All Other Systems: negative except mentioned in HPI Physical Exam Vital Signs Date Time Temp Pulse Resp B/P (MAP) Pulse Ox O2 Delivery O2 Flow Rate FiO2 09/22/18 16:22 98.2 116 18 122/88 99 Room Air Sp02 EP Interpretation: reviewed, normal General Appearance: no apparent distress, alert, GCS 15, non-toxic Head: normocephalic, atraumatic Neck: full range of motion, supple/symm/no masses Respiratory: chest non-tender, lungs clear, normal breath sounds, speaking full sentences Cardiovascular #1: regular rate, rhythm, no edema Musculoskeletal: normal inspection, tender - R lumbar parspinal muscles Neurologic: alert, oriented x3, responsive Psychiatric: judgement/insight normal, memory normal, mood/affect normal, no suicidal/homicidal ideation Reflexes: 2+ knee (R), 2+ knee (L) Skin: normal color, no rash, warm/dry, well hydrated Medical Decision Making PA Attestation Dr. Mckoy is my supervising physician. Patient management was discussed with my supervising physician Diagnostic Impression: Primary Impression: Chronic back pain Qualified Codes: M54.5 - Low back pain; G89.29 - Other chronic pain ER Course Patient is a 48-year-old female presenting for lower back pain. Ddx considered include but not limited to lumbar strain, degenerative disease, epidural abscess, cauda equina syndrome, chronic pain, narcotic dependency, UTI , among others PE: Afebrile. NAD Abdomen soft and nontender No CVA tenderness There is tenderness with touch over the right lumbar paraspinal muscles The patient is in wheelchair and unable to ambulate due to pain CURES report consulted. Last narcotic pain medication prescribed on 07/05/18 She is given IM Toradol and one Moran. She states that she is feeling significantly better. Pain has decreased She will be discharged home with a prescription for Robaxin. She is told that she needs to see pain management as soon as possible. She agrees and understands. She is to follow-up with her primary doctor within 1 week. ER precautions given Last Vital Signs Date Time Temp Pulse Resp B/P (MAP) Pulse Ox O2 Delivery O2 Flow Rate FiO2 09/22/18 17:59 98.0 78 22 120/78 98 Room Air Status: improved Disposition: HOME, SELF-CARE Condition: Improved Scripts Methocarbamol* (ROBAXIN-750*) 750 Mg Tablet 750 MG PO TID, #21 TAB 0 Refills Prov: LAURA RUIZ 09/22/18 Referrals: NON PHYSICIAN (PCP) Patient Instructions: Chronic Pain Additional Instructions: Please follow-up with your primary doctor as soon as possible as we discussed. You need to be under the care of pain management. Please return to emergency Department if pain persists, worsens, or if new symptoms arise. LAURA RUIZ Sep 22, 2018 18:19
== END 2018-09-22 18:00 | disposition home or self-care (01) ==
LOC: EMR 17:17
DX: M54.5 Low back pain (principal); G89.29 Other chronic pain; F43.10 Post-traumatic stress disorder, unspecified; F41.9 Anxiety disorder, unspecified
CPT/HCPCS: 96372; 99283